=== PATIENT | female | born 1980 | race Caucasian/White ===

== ENCOUNTER 2020-05-30 14:21 | Outpatient (RCR) | payer BC, SELFPAY ==
[2013-01-22 06:50] VITALS: BMI 31.2
== END 2020-08-12 23:59 ==
LOC: IMMUN 14:21
PROVIDERS: PCP Family Medicine; Visit Provider Family Medicine
DX: Z23 Encounter for immunization (principal)
CPT/HCPCS: 0001A; 0002A; 91300

== ENCOUNTER 2022-09-23 13:53 | Outpatient (RCR) | payer BC, SELFPAY | END 2022-09-23 19:00 | disposition home or self-care (01) | LOC: PT 13:53 | PROVIDERS: PCP Family Medicine | DX: R51.9 Headache, unspecified (principal) ==

== ENCOUNTER 2023-04-08 19:49 | Emergency (ER) | payer BC, SELFPAY ==
[2023-04-08 19:50] VITALS: BP 114/72; PULSE 83; RESP 16; TEMP 36.4; O2SAT 97; BMI 27.1
--- NOTE | 2023-04-08 20:12 | CT_ITS ---
STUDY: CT ABDOMEN AND PELVIS WITH CONTRAST REASON FOR EXAM: Female, 42 years old. Pain RADIATION DOSAGE (If Supplied By Facility): CTDIvol = ( 13.92 ) mGy, DLP = ( 891.57 ) mGycm TECHNIQUE: Transaxial images were obtained from the dome of the diaphragm to the symphysis pubis without oral contrast. IV 100mL Isovue-370 was administered. Sagittal and coronal images were reconstructed. Individualized dose optimization techniques were used for this CT. COMPARISON: None. FINDINGS: The visualized lung bases are unremarkable. The visualized portions of the heart are within normal limits. Normal liver. The gallbladder is contracted. Normal spleen. Normal pancreas. Normal bilateral adrenal glands. Normal right kidney. Normal left kidney. Normal visualized stomach. Normal small intestine. Normal colon. The appendix is visualized and appears normal. Normal abdominal aorta. Normal inferior vena cava. Normal retroperitoneum. Normal urinary bladder. Normal abdominal wall. Mild levoscoliosis lumbar spine. CT/Abdomen/Pelvis W IV Cont ONLY IMPRESSION: Normal enhanced CT of the abdomen and pelvis. Electronically Signed: Brayan Bazan MD at 22:16 EST ,
[2023-04-08] MEDS: 0.9% Normal Saline (1000mL) 1,000 ML 1000 ML IV (20:24)
[2023-04-08] MEDS: Ondansetron 4 MG/2 ML Vial IV (20:30)
[2023-04-08 20:31] VITALS: BP 123/68; PULSE 69; RESP 18; O2SAT 100
[2023-04-08 20:31] LABS: Absolute Lymphocyte Count 1.61 X10^3/uL (0.83-4.51); Absolute Neutrophil Count 5.6 X10^3/uL (2.0-7.7); Basophil# 0.05 X10^3/uL; Basophil% 0.6 % (0-1); Eosinophil# 0.21 X10^3/uL; Eosinophils% 2.6 % (0-5); Hematocrit 40.1 % (37-47); Hemoglobin 13.2 g/dL (12.0-15.0); Lymphocyte # 1.61 X10^3/ul (0.83-4.51); Lymphocyte % 20.1 % (19-41); Mean Corp Hgb Conc 32.9 g/dL (32-36); Mean Corpuscular Hgb 30.4 pg (27.0-32.0); Mean Corpuscular Volume 92.4 fL (81-99); Mean Platelet Vol. 10.8 fl (6.2-12.0); Monocyte# 0.54 X10^3/uL; Monocyte% 6.8 % (0-10); NRBC Flagged by Analyzer 0 % (0-5); Neutrophil # 5.56 X10^3/uL (2.7-7.7); Neutrophil % 69.5 % (47-70); Platelet Count 195 K/mm3 (150-450); RBC Distribution Width CV 12.9 % (11.6-14.6); Red Blood Count 4.34 M/mm3 (4.2-5.4)
[2023-04-08 20:43] LABS: Internal QC Validated? YES +Cl - CLEAR BKGD; Pregnancy, Serum, hCG Quali. NEGATIVE Negative
--- OUTSIDE RECORDS SUMMARY | 2023-04-08 20:46 | XMS RPT_ITS | CCD ---
Author Name Unknown Address [address] [place] [address] Organization [facility] Care Team Providers Care Apigee Developer Name Role Phone CONNER CRAMER Unavailable Unavailable CARLOS ALBERTO FRAIRE Unavailable Unavailable Carlos Alberto Fraire MD Primary Care Provider Carlos Alberto Fraire MD Primary Care Provider Carlos Alberto Fraire MD Primary Care Provider CARLOS ALBERTO FRAIRE Primary Care Unavailable CARLOS ALBERTO FRAIRE Attending Unavailable ROSALINDA RAMIREZ Referring Unavailable CARLOS ALBERTO FRAIRE Primary Care Unavailable CARLOS ALBERTO FRAIRE Primary Care Unavailable AMILCAR GARCIA Referring Unavailable CARLOS ALBERTO FRAIRE Primary Care Unavailable AMILCAR GARCIA Attending Unavailable ROSALINDA RAMIREZ Attending Unavailable CARLOS ALBERTO FRAIRE Primary Care Unavailable CARLOS ALBERTO FRAIRE Primary Care Unavailable MARYJANE BEARDEN Referring Unavailable CARLOS ALBERTO FRAIRE Primary Care Unavailable MARYJANE BEARDEN Attending Unavailable CARLOS ALBERTO FRAIRE Primary Care Unavailable CARLOS ALBERTO FRAIRE Referring Unavailable CARLOS ALBERTO FRAIRE Primary Care Unavailable CARLOS ALBERTO FRAIRE Referring Unavailable KAREY SERRANO Attending Unavailable Allergies Allergy Classification Reported Allergen(s) Allergy Type Date of Onset Reaction(s) Facility (9 sources) Benzoyl Peroxide; Translations: [BENZOYL PEROXIDE] Drug Allergy 02-13-2011 [facility] Work Phone: Medications Current Medications Medication Drug Class(es) Dates Sig (Normalized) Sig (Original) nitrofurantoin, macrocrystals 25 mg / nitrofurantoin, monohydrate 75 mg oral capsule (1 source) Nitrofuran Antibacterial Start: 02-21-2022 End: 02-26-2022 take 1 capsule by mouth twice daily nitrofurantoin monohydrate and macrocrystal (MACROBID) 100 mg capsule Indications: Acute cystitis without hematuria Take 1 capsule by mouth twice daily for 5 days. 10 capsule 0 02/21/2022 02/26/2022 Active Completed/Discontinued Medications Medication Drug Class(es) Dates Sig (Normalized) Sig (Original) fexofenadine / Pseudoephedrine (8 sources) alpha-Adrenergic Agonist, Histamine-1 Receptor Antagonist fexofenadine/pseudo ephedrine (NEGIN-D 24 HOUR ORAL) Take by mouth. 0 Active Problems Active Problems Problem Classification Problem Date Documented Date Episodic/Chronic Anxiety disorders (2 sources) Generalized anxiety disorder; Translations: [Generalized anxiety disorder] Onset: 04-07-2023 09-16-2022 Chronic Headache; including migraine (8 sources) Migraine; Translations: [Migraine, unspecified, not intractable, without status migrainosus] Onset: 04-09-2010 03-02-2021 Chronic Heart valve disorders (9 sources) Mitral valve prolapse; Translations: [Nonrheumatic mitral (valve) prolapse] Onset: 04-09-2010 03-02-2021 Chronic Hemorrhoids (1 source) Other hemorrhoids; Translations: [Internal hemorrhoids] Onset: 03-29-2023 Episodic Nonmalignant breast conditions (1 source) Breast finding ; Translations: [Dense breast tissue] 01-17-2023 Episodic Nutritional deficiencies (1 source) Vitamin D deficiency, unspecified; Translations: [Vitamin D deficiency] Onset: 04-07-2023 Chronic Other nervous system disorders (1 source) Unable to concentrate ; Translations: [Attention and concentration deficit] 09-16-2022 Chronic Other nervous system disorders (1 source) Attention and concentration deficit; Translations: [Lack of concentration] Onset: 09-16-2022 Chronic Other nervous system disorders (1 source) Impaired cognition; Translations: [Other symptoms and signs involving cognitive functions and awareness] 09-16-2022 Episodic Other nutritional; endocrine; and metabolic disorders (8 sources) Zcein-5-fnruhtnnzwe deficiency; Translations: [Jujtk-2-lxmzthgmgrf deficiency] Onset: 11-30-2011 03-02-2021 Chronic Other screening for suspected conditions (not mental disorders or infectious disease) (7 sources) Patient encounter status; Translations: [Encounter for screening mammogram for malignant neoplasm of breast] Onset: 01-17-2023 Episodic Other upper respiratory disease (8 sources) Seasonal allergy; Translations: [Other seasonal allergic rhinitis] Onset: 06-16-2010 06-16-2010 Chronic Unclassified (1 source) Palpitations / R00.2(ICD-10) Onset: 03-04-2018 Unclassified (1 source) Hypokalemia / E87.6(ICD-10) Onset: 03-04-2018 Unclassified (1 source) Other specified abnormal findings of blood chemistry / R79.89(ICD-10) Onset: 03-04-2018 Unclassified (1 source) Dense breast tissue; Translations: [Dense breast tissue] Onset: 01-17-2023 Urinary tract infections (1 source) Acute cystitis; Translations: [Acute cystitis without hematuria] Episodic Past or Other Problems Problem Classification Problem Date Documented Da te Episodic/Chronic Other nervous system disorders (1 source) Other symptoms and signs involving cognitive functions and awareness; Translations: [Brain fog] Onset: 09-16-2022 Episodic Results Test Name Value Interpretation Reference Range Facil ity Vital Signs Date Time Vital Sign Value Performing Clinician Faci lity 09-16-2022 12:58-0400 Diastolic blood pressure 70 mm[Hg] Amilcar Garcia [employer].OTOLARYNGOLOGY PHYSICIAN Work Phone: [facility] 09-16-2022 12:58-0400 Heart rate 83 /min Amilcar Garcia [employer].OTOLARYNGOLOGY PHYSICIAN Work Phone: [facility] 09-16-2022 12:58-0400 Respiratory rate 18 /min Amilcar Garcia [employer].OTOLARYNGOLOGY PHYSICIAN Work Phone: [facility] 09-16-2022 12:58-0400 SaO2% (BldA) [Mass fraction] 97 % Amilcar Garcia [employer].OTOLARYNGOLOGY PHYSICIAN Work Phone: [facility] 09-16-2022 12:58-0400 Systolic blood pressure 128 mm[Hg] mAilcar Garcia [employer].OTOLARYNGOLOGY PHYSICIAN Work Phone: [facility] 08-05-2022 14:40-0400 Body height 190.5 cm Rosalinda Ramirez [employer].CNM Work Phone: [facility] 08-05-2022 14:40-0400 Body weight 97.98 kg Rosalinda Plotts [employer]CNM Work Phone: [facility] 08-05-2022 14:40-0400 Diastolic blood pressure 70 mm[Hg] Rosalinda Plotts [employer].CNM Work Phone: [facility] 08-05-2022 14:40-0400 Systolic blood pressure 114 mm[Hg] Rosalinda Plotts [employer]CNM Work Phone: [facility] 08-04-2021 10:43-0400 Body height 190.5 cm Rosalinda Plotts [employer]CNM Work Phone: [facility] 08-04-2021 10:43-0400 Body weight 101.61 kg Rosalidna Plotts [employer]CNM Work Phone: [facility] 08-04-2021 10:43-0400 Diastolic blood pressure 78 mm[Hg] Rosalinda Plotts [employer].CNM Work Phone: [facility] 08-04-2021 10:43-0400 Systolic blood pressure 120 mm[Hg] Rosalinda Plotts [employer].CNM Work Phone: [facility] Encounters Encounter Date Encounter Type Care Provider Facility Start: 04-07-2023 ambulatory CARLOS ALBERTO Blum [facility] Facil ity:[facility] Start: 04-06-2023 ambulatory CARLOS ALBERTO Blum [facility] Facil ity:[facility] Start: 04-01-2023 End: 04-01-2023 ambulatory CARLOS ALBERTO Kulwant [facility] Facility:[facility] Start: 03-29-2023 End: 03-29-2023 ambulatory CARLOS ALBERTO Blum [facility] Facility:[facility] Start: 03-29-2023 End: 03-29-2023 ambulatory [facility] Facility:[facility] Start: 01-17-2023 Documentation procedure Mammog asmita Coordinator [facility] Start: 01-17-2023 Letter encounter Mammography Coordinator [facility] Department Start: 01-17-2023 End: 01-17-2023 ambulatory ROSALINDA RAMIREZ Facility:[facility] Start: 01-17-2023 End: 01-17-2023 Subsequent hospital visit by physician Screen Mammo [facility] Mammogram Procedures Date Procedure Procedure Detail Performing Clinician Start: 01-17-2023 Screening digital br east tomosynthesis bi Rosalinda Ramirez [employer]CNM Work Phone: Start: 01-11-2022 Mammography Mammograph y Coordinator Start: 01-08-2021 Mammography Rosalinda pérezchris [employer]CNM Work Phone: Start: 06-17-2020 Adult depression scr eening assessment Rosalinda Ramirez [employer]CNM Work Phone: Start: 03-04-2018 CHECK TEMPERATURE CONNER ABDULMUNEM Start: 03-04-2018 Potassium serum plasma/whole blood CONNER ABDULMUNEM Start: 03-04-2018 RAPID INFLUENZA A/B ANTIGENS CONNER ABDULMUNEM Start: 03-04-2018 Radiologic exam ches t 2 views CONNER ABDULMUNEM Start: 03-04-2018 Dup-scan xtr veins unilateral/limited study CONNER ABDULMUNEM Start: 03-04-2018 Radex ankle complete minimum 3 views CONNER ABDULMUNEM Start: 03-04-2018 D-DIMER, QUANTITATIVE Y ASIR ABDULMUNEM Start: 03-04-2018 URINE DRUG SCREEN CONNER ABDULMUNEM Start: 03-04-2018 Urnls dip stick/tabl et rgnt auto w/o microscopy CONNER ABDULMUNEM Start: 03-04-2018 Antibody bordetella RAN IR ABDULMUNEM Start: 03-04-2018 Assay of free thyroxine CONNER ABDULMUNEM Start: 03-04-2018 Assay of magnesium FAITH R ABDULMUNEM Start: 03-04-2018 Basic metabolic pane l calcium total CONNER ABDULMUNEM Start: 03-04-2018 Blood count complete auto&auto difrntl wbc CONNER ABDULMUNEM Start: 03-04-2018 Creatinine blood CONNER ABDULMUNEM Start: 03-04-2018 Gonadotropin chorion ic qualitative CONNER ABDULMUNEM Start: 03-04-2018 OSMOLALITY CONNER ABDU LMUNEM Start: 03-04-2018 TROPONIN CONNER ABDU LMUNEM Start: 03-04-2018 TSH WITH REFLEX CONNER Vee BDULMUNEM Start: 03-04-2018 EKG 12-LEAD CONNER FUENTES Plan of Treatment Date Care Activity Detail Author Start: 12-20-2029 Urine microalbumin profile [facility] Start: 08-06-2027 HPV TESTING HPV TESTING [facility] Start: 08-06-2027 PAP TESTING PAP TESTING [facility] Start: 08-04-2026 HPV TESTING HPV TESTING [facility] Start: 08-04-2026 PAP TESTING PAP TESTING [facility] Start: 07-21-2025 HPV TESTING HPV TESTING [facility] Start: 07-21-2025 PAP TESTING PAP TESTING [facility] Start: 01-18-2024 Mammography Mammogram Screening [facility] Start: 01-11-2023 Mammography [facility] Start: 11-05-2022 Covid-19 Vaccine ( season) Covid-19 Vaccine () [facility] Start: 11-05-2022 Influenza vaccination [facility] Start: 09-16-2022 End: 11-16-2022 25-hydroxyvitamin D3 [Mass/volume] in Serum or Plasma [facility] Work Phone: Immunizations Immunization Date Immunization Notes Care Provider Fa murphy 01-03-2022 influenza virus vaccine, unspecified formulation Screen Wstr [facility] 12-05-2020 influenza, injectabl e, quadrivalent, contains preservative Rosalinda Ramirez [employer]CNM Work Phone: [facility] Work Phone: 06-20-2020 COVID-19 vaccine, ag e 12+ yr (PFIZER-BIONTECH - PURPLE TOP) Rosalinda Plotts [employer].CNM Work Phone: [facility] 05-30-2020 COVID-19 vaccine, ag e 12+ yr (PFIZER-BIONTECH - PURPLE TOP) Rosalinda Ramirez [employer].CNM Work Phone: [facility] Work Phone: 12-21-2019 tetanus toxoid, redu glo diphtheria toxoid, and acellular pertussis vaccine, adsorbed Rosalindashima Ramirez [employer]CNM Work Phone: [facility] 12-10-2019 influenza, injectabl e, quadrivalent, contains preservative Rosalinda Plotts [employer].CNM Work Phone: [facility] 12-20-2018 influenza, injectabl e, quadrivalent, contains preservative Rosalinda Plotts [employer]CL[employer]URE [employer].CNM Work Phone: [facility] 12-17-2017 influenza, injectabl e, quadrivalent, contains preservative Rosalinda Plotts [employer]ECL[employer]URE [employer].CNM Work Phone: [facility] 12-11-2016 influenza, injectabl e, quadrivalent, contains preservative Rosalinda Plotts [employer]CL[employer]CNM Work Phone: [facility] 01-09-2015 influenza, injectabl e, quadrivalent, contains preservative Rosalinda Plotts [employer]ECLOSURE [employer].CNM Work Phone: [facility] Work Phone: 12-12-2013 influenza, seasonal, injectable Rosalinda Plotts [employer]CNM Work Phone: [facility] 12-07-2012 influenza virus vaccine, unspecified formulation Rosalinda Plotts [employer]CNM Work Phone: [facility] 12-07-2012 tetanus toxoid, redu glo diphtheria toxoid, and acellular pertussis vaccine, adsorbed Rosalinda Plotts [employer]ECL[employer]CNM Work Phone: [facility] 12-20-2011 influenza virus vaccine, unspecified formulation Rosalinda Plotts [employer]ECL[employer]URE [employer].CNM Work Phone: [facility] Work Phone: 11-03-2007 tetanus toxoid, redu glo diphtheria toxoid, and acellular pertussis vaccine, adsorbed Rosalinda Plotts [employer]CL[employer].CNM Work Phone: [facility] Payers Date Payer Category Payer Unknown KOREYSHIRLEY IGNACIO PPO [id number] 2016-Present [phone] [facility] [id number] [place] [address] PPO [id number] 2016 Unknown YRN IGNACIO PPO [id number] 2016-Present [phone] [address] [place] [address] PPO [id number] 2014 Unknown [id number] 1980 Unknown [id number] Social History Date Type Detail Facility Start: 08-05-2022 Tobacco smoking status NHIS Never sm oked tobacco [facility] Start: 08-04-2021 Alcohol intake Ex-drinker (finding) [facility] Start: 08-04-2021 End: 08-05-2022 Alcohol intake [facility] Start: 06-18-2020 History SDOH Alcohol Frequency 3 [facility] Start: 06-18-2020 History SDOH Alcohol Std Drinks 1 [facility] Start: 06-05-2012 History SDOH Alcohol Comment occasional, NOT WHILE [facility] Start: 06-18-2020 History SDOH Social Connections Phone 5 [facility] Start: 06-18-2020 History SDOH Social Connections Get Together 4 [facility] Start: 06-18-2020 History SDOH Physica l Activity DPW 7 [facility] Start: 06-18-2020 History SDOH Physica l Activity MPS 9 [facility] Start: 06-18-2020 History SDOH Transport Med 2 [facility] Start: 07-20-2019 Education 18 [facility] Start: 1980 Sex Assigned At Not on file [facility] Start: 07-25-2021 End: 08-04-2021 Exposure to SARS-CoV-2 (event) Not sure [facility] Start: 08-05-2022 Tobacco use and exposure Smoke less tobacco non-user [facility] Start: 08-05-2022 End: 09-16-2022 Alcohol intake Current drinker of alcohol (finding) [facility] Start: 08-05-2022 End: 09-16-2022 Social connection and isolation panel [facility] Do you belong to any clubs or organizations such as judaism groups, unions, fraternal or athletic groups, or school groups? Yes [facility] Are you now , , , , never or living with a partner? [facility] How often to you hav e a drink containing alcohol? 2-3 time sa week [facility] How many standard dr inks containing alcohol do you have on a typical day? 1 or 2 [facility] How often do you hav e 6 or more drinks on 1 occasion? Never [facility] How hard is it for y ou to pay for the very basics like food, housing, medical care, and heating Not hard at all [facility] Do you feel stress - tense, restless, nervous, or anxious, or unable to sleep at night because your mind is troubled all the time - these days [OSQ] Rather much [facility] (I/We) worried wheascencion er (my/our) food would run out before (I/we) got money to buy more. Never true [facility] In the past 12 month s, was there a time when you were not able to pay the mortgage or rent on time? No [facility] Clinical Notes 07-14-2012 to 04-06-2023 Letter - Coordinator, Mammography - 01/17/2023 10:09 AM Isael Castro Mammo Tech - 01/17/2023 7:30 AM ESTTelephone Encounter - Anita Herring Ma - 09/20/2022 9:40 AM EDTPatient Instructions Note Date & Type Note Facility 04-06-2023 Note HNO ID: [id number] Author: MARYJANE BEARDEN APRN.OTOLARYNGOLOGY PHYSICIAN Service: ? Author Type: Nurse Practitioner Type: Progress Notes Filed: 04/06/2023 22:26 Note Text: This is a 42 year old female who presents today with: Patient presents with: Anxiety: intermittent HISTORY OF PRESENT ILLNESS: Yennifer Headley is a 42 year old female. Patient presents with: Anxiety: intermittent Over the last couple of years, worsening anxiety. Always with a high functioning anxiety, but able to cope. This is more of a constant feeling of doom. Started a couple of years ago and would start in the middle of her cycle and last briefly. Some months now, will start mid cycle and then will last until her periods start. Has had some additional situational stressors. Ill friend. Mother's hx. She is awaiting cardiology appt. She has never been treated for depression/anxiety. Her mother has hx of liver issues. She is concerned of being on a medication that may damage her liver. Sleep had been good until recently. Refers moreso recently, would wake up and then focus on her heart rate, which then would only increase her heart rate. Has lost weight. Does have a concern over potential weight gain with medication. She has a daughter with anxiety and did participate in counseling with her and has tried utilizing some of those techniques. Questions of she may have a component of ADD/ADHD. No SI/HI. 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 Cervical high risk human papillomavirus (HPV) DNA test positive 2004 [place] Migraine, unspecified, with intractable migraine, so stated, without mention of status migrainosus Migraine Mitral valve disorders(424.0) Mitral valve disorder, MVP Other abnormal blood chemistry Abnormality in Genetic testing, Alpha 1 Antitrypsin Deficiency Seasonal allergies PAST SURGICAL HISTORY Procedure Laterality Date COLPOSCOPY CERVIX UPPER/ADJACENT VAGINA 2004 Colposcopy no abn PAST SURGICAL HISTORY OF 2 foot surgeries- bunions and hammar toes PAST SURGICAL HISTORY OF WISDOM TEETH ALLERGIES Benzoyl Peroxide MEDICATIONS Current Outpatient Medications Medication Sig pantoprazole DR (PROTONIX) 40 mg tablet Take 1 tablet by mouth daily before breakfast. Take on empty stomach, 1/2 hr before meal. magnesium oxide 200 mg magnesium chew Take 1 tablet by mouth once daily. hydrocortisone (ANUSOL-HC) 25 mg suppository 1 Suppository by RECTAL route two times a day as needed (hemorrhoids/rectal pain). fluticasone propionate (FLONASE NASAL) Use in the nose. MULTIVITAMIN ORAL Take by mouth. fexofenadine/pseudoephedrine (NEGIN-D 24 HOUR ORAL) Take by mouth. L. acidophilus-L. rhamnosus 15 billion cell cap Take 1 capsule by mouth once daily. FLORAJEN WOMEN. If on antibiotic, take at least 1-2 hours before or after antibiotic. KEEP REFRIGERATED No current facility-administered medications for this visit. FAMILY HISTORY Problem Relation Age of Onset Hypertension Mother other (chrons disease) Mother , d/t complications from liver failure at age 61 other (Fibroid) Mother Surgical removed No Known Problems Father other (testicular cancer) Brother Breast Cancer Maternal Grandmother Heart Attack Maternal Grandfather fatal ID at age 50s Cancer Paternal Grandmother ovarian Cervical Cancer Paternal Aunt Social History Tobacco Use Smoking status: Never Smokeless tobacco: Never Vaping Use Vaping Use: Never used Substance Use Topics Alcohol use: Yes Alcohol/week: 2.0 standard drinks of alcohol Types: 2 Glasses of Wine (5oz) per week Drug use: No EXAM: BP 104/72 Pulse 95 Resp 16 LMP 07/15/2022 (Exact Date) SpO2 97% PHYSICAL EXAM: General Appearance: Well appearing, alert, in no acute distress, well-hydrated, well nourished. Teary at times. Skin: Skin color, texture, turgor normal, no suspicious rashes or lesions. Head: Normocephalic, no masses, lesions, tenderness or abnormalities. Eyes: Anicteric sclera. Extraocular movements are intact. . Lungs: Lungs clear to auscultation. No wheezing, rhonchi, rales.. Heart: RRR without murmur, gallop, or rubs. No ectopy. Extremities: No deformities, edema, skin discoloration, clubbing or cyanosis. Good capillary refill. . Neurologic: Gait normal. ASSESSMENT/PLAN: 1. POLLO (generalized anxiety disorder) - ICD9: 300.02, ICD10: F41.1 (primary diagnosis) Has some POLLO compounded by some situational anxiety. May have a cyclic component. Discussed options. Agreeable to starting medication therapy. Will start sertraline. Will check labs. - SERTRALINE 50 MG TABLET 1/2 pill daily X 1 week; then increase to a whole pill daily. - CBC + DIFF - COMP METABOLIC PANEL - TSH BLD - T4 FREE/FREE THYROX Will plan to recheck in a month. Sooner if needed. Aware to call/mychart with problems/concerns. 2. Screen (more content not included)... [facility] 03-31-2023 Note HNO ID: [id number] Author: KAREY SERRANO MD Service: ? Author Type: Physician Type: Progress Notes Filed: 03/31/2023 19:08 Note Text: HISTORY AND PHYSICAL Yennifer Headley 1980 REFERRING PHYSICIAN: Carlos Alberto Fraire MD CHIEF COMPLAINT: Consult (Internal hemorrhoids, colonoscopy consult, no prior colonoscopy) HPI: The patient is a 42 year old female referred for endoscopy. Yennifer notes a feeling of pressure in her lower rectum and feeling of a constant need to have to have a bowel movement for the past month. She notes that the symptoms of this feeling pressure to have a bowel movement has increased for the past month. It gets worse as the day goes on. She denies constipation diarrhea or rectal bleeding. She wonders if this issue relates to hemorrhoids. She states she has had prolapsing hemorrhoids in the past but they have resolved spontaneously. She has been trying Preparation H and Epsom salts. She has no personal history of colon cancer but she notes her father had a colon resection for a precancerous lesion. The patient initially denied any GI complaints but then noted dysphagia with solid food sticking approximately 3 times a week. Yennifer has not undergone prior endoscopy. The patient is being seen by me today at the request of Dr. Carlos Alberto Fraire MD for my opinion and advice regarding rectal pressure possibly hemorrhoids, need for screening colonoscopy by age with a suspected family history, and dysphagia. 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 Cervical high risk human papillomavirus (HPV) DNA test positive 2004 [place] Migraine, unspecified, with intractable migraine, so stated, without mention of status migrainosus Migraine Mitral valve disorders(424.0) Mitral valve disorder, MVP Other abnormal blood chemistry Abnormality in Genetic testing, Alpha 1 Antitrypsin Deficiency Seasonal allergies PAST SURGICAL HISTORY Procedure Laterality Date COLPOSCOPY CERVIX UPPER/ADJACENT VAGINA 2004 Colposcopy no abn PAST SURGICAL HISTORY OF 2 foot surgeries- bunions and hammar toes PAST SURGICAL HISTORY OF WISDOM TEETH Current Outpatient Medications Medication Sig magnesium oxide 200 mg magnesium chew Take 1 tablet by mouth once daily. hydrocortisone (ANUSOL-HC) 25 mg suppository 1 Suppository by RECTAL route two times a day as needed (hemorrhoids/rectal pain). fluticasone propionate (FLONASE NASAL) Use in the nose. MULTIVITAMIN ORAL Take by mouth. fexofenadine/pseudoephedrine (NEGIN-D 24 HOUR ORAL) Take by mouth. L. acidophilus-L. rhamnosus 15 billion cell cap Take 1 capsule by mouth once daily. [facility] WOMEN. If on antibiotic, take at least 1-2 hours before or after antibiotic. KEEP REFRIGERATED No current facility-administered medications for this visit. ALLERGIES: Benzoyl Peroxide PERSONAL HISTORY: Social History Tobacco Use Smoking status: Never Smokeless tobacco: Never Vaping Use Vaping Use: Never used Substance Use Topics Alcohol use: Yes Alcohol/week: 2.0 standard drinks of alcohol Types: 2 Glasses of Wine (5oz) per week Drug use: No FAMILY HISTORY: FAMILY HISTORY Problem Relation Age of Onset Hypertension Mother other (chrons disease) Mother , d/t complications from liver failure at age 61 other (Fibroid) Mother Surgical removed No Known Problems Father other (testicular cancer) Brother Breast Cancer Maternal Grandmother Heart Attack Maternal Grandfather fatal ID at age 50s Cancer Paternal Grandmother ovarian Cervical Cancer Paternal Aunt REVIEW OF SYMPTOMS: The review of systems data was entered by the nurse and reviewed by ma Nursing Notes: Myriam Ramos LPN 03/29/2023 2:22 PM Signed REVIEW OF SYSTEMS: General: The patient denies fatigue, denies weight loss, denies weight gain, denies feeling hot, and denies feelings of cold. Eyes: The patient denies glaucoma, denies eye injury/surgery, wears glasses or contacts. Ear/Nose/Throat: The patient notes allergies, denies hayfever, denies ear infections, and denies bloody noses. Cardiovascular: The patient denies chest pain, denies heart disease, denies high blood pressure,denies cardiac stent, denies prior heart attack, denies irregular heart beat, denies high cholesterol, notes poor circulation, denies heart failure, other cardiac issues, denies claudication, denies cold feet, denies peripheral arterial stent. Respiratory: The patient denies tuberculosis, denies pneumonia, denies frequent cough, denies pulmonary embolism, denies shortness of breath, and denies coughing up blood. Gastrointestinal: The patient denies difficulty swallowing, denies acid reflux, denies ulcers, denies vomiting, denies jaundice/hepatitis, denies gallbladder problems, denies black or tarry stools, notes hemorrhoids, denies bleeding from rectum, denies diverticulitis, denies con (more content not included)... [facility] 03-29-2023 Note HNO ID: [id number] Author: CARLOS ALBERTO FRAIRE MD Service: ? Author Type: Physician Type: Progress Notes Filed: 03/29/2023 10:50 Note Text: Chief Complaint Patient presents with: Rectal Problem: hemorrhoids HPI Yennifer Headley is a 42 year old female who presents here today for hemorrhoids. Has 2 kids ages 14 and 10. Pt has new hemorrhoids. She first noticed it when she was on her feet one day a lot but didn't think it was much as she tends to get tight in the lower back and hips when on her feet a lot. She has had hemorrhoid issues since . She feels it is more internal, pressure, throbbing at times. Feels like she needs to have BM due to the pressure. She states that the more she is on her feet it will feel a little external to the left side. She has not had any rectal bleeding, no burning or itching. She has done epsom salt baths and used preparation H which seems to help externally but not much internally. Denies having any constipation or diarrhea. Stools are softer but she has started getting more protein and fiber in her diet. She is typically regular, goes about once daily. She does feel that she has to push hard to pass gas at times. Her father had issues with hemorrhoids at her age that we bad enough he had to have laser tx, had to have some intestinal issues and precancerous polyps in his colon. Pt to get an Echo done regularly to monitor her mitral valve prolapse. She does get palpitations at times but feels like it is hormonal. Some flutters and skipped beat occ. No light headedness or dizziness. Typically only happens a few times a year. Last Echo was in 2018. Last visit with Cardio was in September 2018. Past medical history, appointments, medications, allergies reviewed. 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 Cervical high risk human papillomavirus (HPV) DNA test positive 2004 [place] Migraine, unspecified, with intractable migraine, so stated, without mention of status migrainosus Migraine Mitral valve disorders(424.0) Mitral valve disorder, MVP Other abnormal blood chemistry Abnormality in Genetic testing, Alpha 1 Antitrypsin Deficiency Seasonal allergies Previous Surgical History PAST SURGICAL HISTORY Procedure Laterality Date COLPOSCOPY CERVIX UPPER/ADJACENT VAGINA 2004 Colposcopy no abn PAST SURGICAL HISTORY OF 2 foot surgeries- bunions and hammar toes PAST SURGICAL HISTORY OF WISDOM TEETH Family History FAMILY HISTORY Problem Relation Age of Onset Hypertension Mother other (chrons disease) Mother , d/t complications from liver failure at age 61 other (Fibroid) Mother Surgical removed No Known Problems Father other (testicular cancer) Brother Breast Cancer Maternal Grandmother Heart Attack Maternal Grandfather fatal ID at age 50s Cancer Paternal Grandmother ovarian Cervical Cancer Paternal Aunt Patient Allergies ALLERGIES Allergen Reactions Benzoyl Peroxide Hives Current Medications Current Outpatient Medications on File Prior to Visit Medication Sig PARoxetine (PAXIL) 10 mg tablet Take 1 tablet by mouth once daily. fluticasone propionate (FLONASE NASAL) Use in the nose. MULTIVITAMIN ORAL Take by mouth. fexofenadine/pseudoephedrine (NEGIN-D 24 HOUR ORAL) Take by mouth. L. acidophilus-L. rhamnosus 15 billion cell cap Take 1 capsule by mouth once daily. [facility] WOMEN. If on antibiotic, take at least 1-2 hours before or after antibiotic. KEEP REFRIGERATED No current facility-administered medications on file prior to visit. Social History Social History Tobacco Use Smoking status: Never Smokeless tobacco: Never Vaping Use Vaping Use: Never used Substance Use Topics Alcohol use: Yes Alcohol/week: 2.0 standard drinks of alcohol Types: 2 Glasses of Wine (5oz) per week Drug use: No EXAM: BP 118/68 Pulse 78 Resp 16 Wt 100.8 kg (222 lb 3.2 oz) LMP 07/15/2022 (Exact Date) BMI 27.77 kg/m? General Appearance: Well appearing, alert, in no acute distress, well-hydrated, well nourished.. Lungs: Lungs clear to auscultation. No wheezing, rhonchi, rales.. Heart: RRR without murmur, gallop, or rubs. No ectopy. Health Maintenance List Hepatitis B Vaccine(1 of 3 - 3-dose series) Never done Hepatitis C Screening Never done Covid-19 Vaccine( season) due on 11/05/2022 Depression Assessment Never done Mammogram Screening due on 01/18/2024 Pap Testing due on 08/06/2027 HPV Testing due on 08/06/2027 DTaP,Tdap,Td Vaccine(4 - Td or Tdap) due on 12/20/2029 Influenza Vaccine Completed HIV Screening Completed HPV Vaccine Aged Out Data reviewed None ASSESSMENT/PLAN: 1. Internal hemorrhoids - ICD9: 455.0, ICD10: K64.8 (primary diagnosis) Start rectal suppositories Consult Gen Surgery; also due to start screening colonoscopy this year. 2. MVP (mitral valve prolaps (more content not included)... [facility] 01-17-2023 Miscellaneous Notes January 18, 2023 PID: [id number] Yennifer Headley [address] [place] [address] Dear Ms. Headley, We are pleased to inform you that the results of your recent breast imaging exam on 01/17/2023 are normal. Your mammogram demonstrates that you have dense breast tissue, which could hide abnormalities. Dense breast tissue, in and of itself, is a relatively common condition. Therefore, this information is not provided to cause undue concern; rather, it is to raise your awareness and promote discussion with your health care provider regarding the presence of dense breast tissue in addition to other risk factors. Early detection of cancer is very important. We also understand recommendations regarding breast cancer screening are controversial. Please discuss with your primary care provider which strategy is best for you and whether a mammogram is right for you. Your imaging studies and report will be kept on file at [facility] as part of your permanent medical record and are available for your continuing care. Thank you for allowing us to help in meeting your health care needs. Sincerely, Dr. Hoffmann Interpreting Radiologist [facility] (Normal over 40) documented in this encounter [facility] 01-17-2023 Note HNO ID: [id number] Author: Isael Pate Mammo Tech Service: ? Author Type: Technologist Type: Progress Notes Filed: 01/17/2023 7:55 AM Note Text: Radiology Service Progress Note PATIENT NAME: Yennifer Headley DATE OF SERVICE: January 17, 2023 TIME: 7:55 AM PATIENT IDENTITY VERIFICATION COMPLETED USING TWO (2) IDENTIFIERS: Name and Date of confirmed by patient verbally. FALL SCREENING: Has the patient had 2 falls in the last year or 1 fall with injury or currently using an Ambulatory Assistive Device (Walker, Cane, Wheelchair, Crutches, etc.)? No PATIENT GENDER DATA: Female. status: : No status: NO. PATIENT RELEVANT IMPLANT DATA REVIEWED: Not Applicable RADIOLOGY DEPARTMENT: Mammography PERIPHERAL IV DATA: Not applicable SIGNED BY: Bibiana CouchYUPPTV January 17, 2023 7:55 AM [facility] 01-17-2023 History of Presen t illness Narrative Radiology Service Progress Note PATIENT NAME: Yennifer Headley DATE OF SERVICE: January 17, 2023 TIME: 7:55 AM PATIENT IDENTITY VERIFICATION COMPLETED USING TWO (2) IDENTIFIERS: Name and Date of confirmed by patient verbally. FALL SCREENING: Has the patient had 2 falls in the last year or 1 fall with injury or currently using an Ambulatory Assistive Device (Walker, Cane, Wheelchair, Crutches, etc.)? No PATIENT GENDER DATA: Female. status: : No status: NO. PATIENT RELEVANT IMPLANT DATA REVIEWED: Not Applicable RADIOLOGY DEPARTMENT: Mammography PERIPHERAL IV DATA: Not applicable SIGNED BY: Ruth Ann Couch January 17, 2023 7:55 AM documented in this encounter [facility] 09-20-2022 Miscellaneous Notes Pt notified of results via [employer]. Anita Herring Ma Can you please call the patient and let her know that I reviewed her lab results. Labs were all relatively normal. I do not see any causes at this time for her current symptoms. I did get her [employer] message. If she would like to wait to start the Paxil and try natural things first that is okay. In regards to ovarian cancer screening this would include a transvaginal ultrasound and a blood test called CA-125. As well as staying up-to-date on pelvic exams at [facility]. Please let me know if she has any questions. Thank you. Amilcar Garcia APRN.OTOLARYNGOLOGY PHYSICIAN documented in this encounter [facility] 09-16-2022 Note HNO ID: [id number] Author: Amilcar Garcia APRN.TK Service: ? Author Type: Nurse Practitioner Type: Progress Notes Filed: 09/16/2022 2:04 PM Note Text: This is a 41 year old female who presents today with: Patient presents with: Anxiety HISTORY OF PRESENT ILLNESS: Yennifer Headley is a 41 year old female. Patient presents with: Anxiety Here in the office to discuss increased anxiety, brain fog, and palpitations. Was evaluated in gynecology due to irregular cycles. Recommending follow-up with PCP team for further evaluation. Has never been diagnosed with depression or anxiety in the past, has never taken any prescription medication. Increase in anxiety and difficulty with sleep. Difficulty staying asleep, light sleeper, will wake up quickly. Will be on the verge of panic attack with brain fog. No hot flashes, history of MVP. Will get random palpitations. 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 Cervical high risk human papillomavirus (HPV) DNA test positive 2004 [place] Migraine, unspecified, with intractable migraine, so stated, without mention of status migrainosus Migraine Mitral valve disorders(424.0) Mitral valve disorder, MVP Other abnormal blood chemistry Abnormality in Genetic testing, Alpha 1 Antitrypsin Deficiency Seasonal allergies PAST SURGICAL HISTORY Procedure Laterality Date COLPOSCOPY CERVIX UPPER/ADJACENT VAGINA 2004 Colposcopy no abn PAST SURGICAL HISTORY OF 2 foot surgeries- bunions and hammar toes PAST SURGICAL HISTORY OF WISDOM TEETH ALLERGIES Benzoyl Peroxide MEDICATIONS Current Outpatient Medications Medication Sig fluticasone propionate (FLONASE NASAL) Use in the nose. MULTIVITAMIN ORAL Take by mouth. fexofenadine/pseudoephedrine (NEGIN-D 24 HOUR ORAL) Take by mouth. L. acidophilus-L. rhamnosus 15 billion cell cap Take 1 capsule by mouth once daily. [facility] WOMEN. If on antibiotic, take at least 1-2 hours before or after antibiotic. KEEP REFRIGERATED No current facility-administered medications for this visit. FAMILY HISTORY Problem Relation Age of Onset Hypertension Mother other (chrons disease) Mother , d/t complications from liver failure at age 61 other (Fibroid) Mother Surgical removed No Known Problems Father other (testicular cancer) Brother Breast Cancer Maternal Grandmother Heart Attack Maternal Grandfather fatal ID at age 50s Cancer Paternal Grandmother ovarian Cervical Cancer Paternal Aunt Social History Tobacco Use Smoking status: Never Smokeless tobacco: Never Vaping Use Vaping Use: Never used Substance Use Topics Alcohol use: Yes Alcohol/week: 5.0 standard drinks of alcohol Types: 2 Glasses of Wine (5oz) per week Drug use: No REVIEW OF SYSTEMS GENERAL: No weight loss, malaise or fevers/chills HEENT: Negative for frequent or significant headaches, No changes in hearing or vision. NECK: Negative for lumps, goiter, pain and significant neck swelling RESPIRATORY: Negative for cough, hemoptysis, wheezing, dyspnea or shortness of breath CARDIOVASCULAR: Negative for chest pain, leg swelling, orthopnea, or palpitations GI: No nausea, vomiting, or diarrhea/constipation. No hematochezia/melena. No heartburn or reflux symptoms. : No history of dysuria, frequency or incontinence MUSCULOSKELETAL: Negative for joint pain or swelling. SKIN: Negative for lesions, rash, and itching ENDOCRINE: Negative for cold or heat intolerance, polyuria, polydipsia and goiter NEURO: No history of headaches, syncope, paralysis, seizures or tremors MOOD: + Anxiety/Difficulty sleeping EXAM: BP 128/70 Pulse 83 Resp 18 LMP 07/15/2022 (Exact Date) SpO2 97% PHYSICAL EXAM: General Appearance: Well appearing, alert, in no acute distress, well-hydrated, well nourished. Skin: Skin color, texture, turgor normal, no suspicious rashes or lesions. Head: Normocephalic, no masses, lesions, tenderness or abnormalities. Eyes: Anicteric sclera. Extraocular movements are intact. Lungs: Lungs clear to auscultation. No wheezing, rhonchi, rales. Heart: RRR without murmur, gallop, or rubs. No ectopy. Extremities: No deformities, edema, skin discoloration, clubbing or cyanosis. Good capillary refill. Peripheral Pulses: Normal, Capillary refill <2secs, strong peripheral pulses, Pulses palpable. Neurologic: Gait normal. Reflexes normal and symmetric. Sensation grossly intact. Mood: Pleasant, good eye contact, engaged. ASSESSMENT/PLAN: 1. POLLO (generalized anxiety disorder) - ICD9: 300.02, ICD10: F41.1 (primary diagnosis) - Start Paxil 10 mg daily. - Medication education and instructions discussed. - Discussed adding on hydroxyzine in the future if needed for increased anxiety or difficulty sleeping. - PAROXETINE 10 MG TABLET 2. Brain fog - ICD9: 799.59, ICD10: R41.89 - Get labs completed. (more content not included)... [facility] 09-16-2022 Instructions Amilcar Garcia APRN.CNP - 09/16/2022 1:20 PM EDT Get labs completed Start Paxil 10 mg daily. May use OTC magnesium before bed to help with sleep. If no improvement may consider hydroxyzine in the future. Follow up in 1 month or sooner as needed. documented in this encounter [facility] 09-16-2022 History of Presen t illness Narrative This is a 41 year old female who presents today with: Patient presents with: Anxiety HISTORY OF PRESENT ILLNESS: Yennifer Headley is a 41 year old female. Patient presents with: Anxiety Here in the office to discuss increased anxiety, brain fog, and palpitations. Was evaluated in gynecology due to irregular cycles. Recommending follow-up with PCP team for further evaluation. Has never been diagnosed with depression or anxiety in the past, has never taken any prescription medication. Increase in anxiety and difficulty with sleep. Difficulty staying asleep, light sleeper, will wake up quickly. Will be on the verge of panic attack with brain fog. No hot flashes, history of MVP. Will get random palpitations. 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 Cervical high risk human papillomavirus (HPV) DNA test positive 2004 [place] Migraine, unspecified, with intractable migraine, so stated, without mention of status migrainosus Migraine Mitral valve disorders(424.0) Mitral valve disorder, MVP Other abnormal blood chemistry Abnormality in Genetic testing, Alpha 1 Antitrypsin Deficiency Seasonal allergies PAST SURGICAL HISTORY Procedure Laterality Date COLPOSCOPY CERVIX UPPER/ADJACENT VAGINA 2005 Colposcopy no abn PAST SURGICAL HISTORY OF 2 foot surgeries- bunions and hammar toes PAST SURGICAL HISTORY OF WISDOM TEETH ALLERGIES Benzoyl Peroxide MEDICATIONS Current Outpatient Medications Medication Sig fluticasone propionate (FLONASE NASAL) Use in the nose. MULTIVITAMIN ORAL Take by mouth. fexofenadine/pseudoephedrine (NEGIN-D 24 HOUR ORAL) Take by mouth. L. acidophilus-L. rhamnosus 15 billion cell cap Take 1 capsule by mouth once daily. [facility] WOMEN. If on antibiotic, take at least 1-2 hours before or after antibiotic. KEEP REFRIGERATED No current facility-administered medications for this visit. FAMILY HISTORY Problem Relation Age of Onset Hypertension Mother other (chrons disease) Mother , d/t complications from liver failure at age 61 other (Fibroid) Mother Surgical removed No Known Problems Father other (testicular cancer) Brother Breast Cancer Maternal Grandmother Heart Attack Maternal Grandfather fatal ID at age 50s Cancer Paternal Grandmother ovarian Cervical Cancer Paternal Aunt Social History Tobacco Use Smoking status: Never Smokeless tobacco: Never Vaping Use Vaping Use: Never used Substance Use Topics Alcohol use: Yes Alcohol/week: 5.0 standard drinks of alcohol Types: 2 Glasses of Wine (5oz) per week Drug use: No REVIEW OF SYSTEMS GENERAL: No weight loss, malaise or fevers/chills HEENT: Negative for frequent or significant headaches, No changes in hearing or vision. NECK: Negative for lumps, goiter, pain and significant neck swelling RESPIRATORY: Negative for cough, hemoptysis, wheezing, dyspnea or shortness of breath CARDIOVASCULAR: Negative for chest pain, leg swelling, orthopnea, or palpitations GI: No nausea, vomiting, or diarrhea/constipation. No hematochezia/melena. No heartburn or reflux symptoms. : No history of dysuria, frequency or incontinence MUSCULOSKELETAL: Negative for joint pain or swelling. SKIN: Negative for lesions, rash, and itching ENDOCRINE: Negative for cold or heat intolerance, polyuria, polydipsia and goiter NEURO: No history of headaches, syncope, paralysis, seizures or tremors MOOD: + Anxiety/Difficulty sleeping EXAM: BP 128/70 Pulse 83 Resp 18 LMP 07/15/2022 (Exact Date) SpO2 97% PHYSICAL EXAM: General Appearance: Well appearing, alert, in no acute distress, well-hydrated, well nourished. Skin: Skin color, texture, turgor normal, no suspicious rashes or lesions. Head: Normocephalic, no masses, lesions, tenderness or abnormalities. Eyes: Anicteric sclera. Extraocular movements are intact. Lungs: Lungs clear to auscultation. No wheezing, rhonchi, rales. Heart: RRR without murmur, gallop, or rubs. No ectopy. Extremities: No deformities, edema, skin discoloration, clubbing or cyanosis. Good capillary refill. Peripheral Pulses: Normal, Capillary refill <2secs, strong peripheral pulses, Pulses palpable. Neurologic: Gait normal. Reflexes normal and symmetric. Sensation grossly intact. Mood: Pleasant, good eye contact, engaged. ASSESSMENT/PLAN: 1. POLLO (generalized anxiety disorder) - ICD9: 300.02, ICD10: F41.1 (primary diagnosis) - Start Paxil 10 mg daily. - Medication education and instructions discussed. - Discussed adding on hydroxyzine in the future if needed for increased anxiety or difficulty sleeping. - PAROXETINE 10 MG TABLET 2. Brain fog - ICD9: 799.59, ICD10: R41.89 - Get labs completed. - CBC + DIFF - COMP METABOLIC PANEL - TSH BLD - VITAMIN B12 BLOOD - VITAMIN D 25 HYDROXY - FOLATE SERUM 3. Lack of concentration - ICD9: 799.51, ICD10: R41.840 - CBC + DIFF - COMP METABOLIC PANEL - TSH BLD - VITAMIN B12 BLOOD - VITAMIN D 25 HYDROXY - FOLATE SERUM - PAROXETINE 10 MG TABLET Follow-up in 1 month or sooner as needed. Discussed treatment plan and patient voices understanding. Patient's questions answered appropriately. Medications and potential side effects were discussed and patient voices understanding. Amilcar Garcia APRN.OTOLARYNGOLOGY PHYSICIAN This note was partially generated using [employer] recognition system. Note was reviewed for accuracy. There may be minor misspellings or grammar miscues with [employer] voice recognition. documented in this encounter [facility] 08-05-2022 Note HNO ID: [id number] Author: Rosalinda Ramirez APRN.CNM Service: ? Author Type: Clinical Cytogeneticist Type: Progress Notes Filed: 08/05/2022 3:33 PM Note Text: Mary is a 41 year old who presents for an annual gynecologic exam without complaints. Noticing some increasing anxiety during cycle- thinks may get screened for ADD. Requests yearly PAP screenings. Menses: cycles every 27-29 days Contraception: vasectomy HPV vaccine: No Last Pap: 08/11/2021 normal HPV: 08/07/2021 negative History of abnormal pap: early colposcopy Last mammogram: 2021 Sexually active: Yes History of STDS: HPV Pain with intercourse: No Postcoital bleeding: No Hot flashes: No Night sweats: Yes-occasional Vaginal dryness: Yes OB History T1 L2 SAB1 IAB0 Ectopic0 Multiple0 Live Births2 [employer] History LMP: 07/15/2022 (Exact Date), Having periods Age at Menarche: Age at First : Age at Menopause: [employer] History Comments: Sexual Activity: Yes; Male Contraception: Condom PAST MEDICAL HISTORY Diagnosis Date Nccbq-4-qbuoljbagdz 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 Cervical high risk human papillomavirus (HPV) DNA test positive 2004 [place] Migraine, unspecified, with intractable migraine, so stated, without mention of status migrainosus Migraine Mitral valve disorders(424.0) Mitral valve disorder, MVP Other abnormal blood chemistry Abnormality in Genetic testing, Alpha 1 Antitrypsin Deficiency Seasonal allergies PAST SURGICAL HISTORY Procedure Laterality Date COLPOSCOPY CERVIX UPPER/ADJACENT VAGINA 2004 Colposcopy no abn PAST SURGICAL HISTORY OF 2 foot surgeries- bunions and hammar toes PAST SURGICAL HISTORY OF WISDOM TEETH FAMILY HISTORY Problem Relation Age of Onset Hypertension Mother other (chrons disease) Mother , d/t complications from liver failure at age 61 other (Fibroid) Mother Surgical removed No Known Problems Father other (testicular cancer) Brother Breast Cancer Maternal Grandmother Heart Attack Maternal Grandfather fatal ID at age 50s Cancer Paternal Grandmother ovarian Cervical Cancer Paternal Aunt SOCIAL HISTORY Social History Tobacco Use Smoking status: Never Smokeless tobacco: Never Vaping Use Vaping Use: Never used Substance Use Topics Alcohol use: Yes Alcohol/week: 5.0 standard drinks Types: 2 Glasses of Wine (5oz) per week Drug use: No REVIEW OF SYSTEMS Abdomen: No abdominal pain, nausea, vomiting, diarrhea, or constipation. No bloating, early satiety, indigestion, or increased flatulence. Bladder: No dysuria, gross hematuria, urinary frequency, urinary urgency, or incontinence. Breast: No breast lumps, nipple d/c, overlying skin changes, redness or skin retraction. Allergies and current medication updated:Yes EXAM: BP 114/70 Ht 6' 3 (1.91m) Wt 216 lb (98.0kg) LMP 07/15/2022 BMI 27.00 kg/(m2). GENERAL: pleasant, female in no apparent distress HEENT: Normocephalic, atraumatic, mucus membranes moist, and no lesions NECK: Supple and full range of motion DERMATOLOGY: Normal and without lesions BREAST: soft, non-tender, symmetric, no dominant mass, normal nipple-areolar complex, no lymphadenopathy, and no nipple discharge CHEST: Normal inspiratory effort ABDOMEN: soft, non-tender, and no masses PELVIC: external genitalia normal, normal Bartholin's glands, urethra, Quinebaug's glands, no vulvar lesions, no cervical lesions, good vaginal support, physiologic discharge present, normal appearing perineal body and perianal region BIMANUAL: uterus normal size, shape and consistency, no adnexal masses, non-tender, and no cervical motion tenderness RECTOVAGINAL: deferred. NEURO: alert and oriented x3,exam grossly non-focal EXTREMITIES: normal ASSESSMENT/PLAN: 1) Health maintenance: Pap done with HPV. Mammogram ordered. 2) Contraception: vasectomy. 3) STD screening: Declined STD check. 4) Follow up one year or sooner as needed Rosalinda Ramirez APRN.[facility] 08-05-2022 History of Presen t illness Narrative Mary is a 41 year old who presents for an annual gynecologic exam without complaints. Noticing some increasing anxiety during cycle- thinks may get screened for ADD. Requests yearly PAP screenings. Menses: cycles every 27-29 days Contraception: vasectomy HPV vaccine: No Last Pap: 08/11/2021 normal HPV: 08/07/2021 negative History of abnormal pap: early colposcopy Last mammogram: 2021 Sexually active: Yes History of STDS: HPV Pain with intercourse: No Postcoital bleeding: No Hot flashes: No Night sweats: Yes-occasional Vaginal dryness: Yes OB History T1 L2 SAB1 IAB0 Ectopic0 Multiple0 Live Births2 [employer] Work[employer] History LMP: 07/15/2022 (Exact Date), Having periods Age at Menarche: Age at First : Age at Menopause: [employer] Worker History Comments: Sexual Activity: Yes; Male Contraception: Condom PAST MEDICAL HISTORY Diagnosis Date Nqafs-0-znkjyrsnwaq 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 Cervical high risk human papillomavirus (HPV) DNA test positive 2004 [place] Migraine, unspecified, with intractable migraine, so stated, without mention of status migrainosus Migraine Mitral valve disorders(424.0) Mitral valve disorder, MVP Other abnormal blood chemistry Abnormality in Genetic testing, Alpha 1 Antitrypsin Deficiency Seasonal allergies PAST SURGICAL HISTORY Procedure Laterality Date COLPOSCOPY CERVIX UPPER/ADJACENT VAGINA 2004 Colposcopy no abn PAST SURGICAL HISTORY OF 2 foot surgeries- bunions and hammar toes PAST SURGICAL HISTORY OF WISDOM TEETH FAMILY HISTORY Problem Relation Age of Onset Hypertension Mother other (chrons disease) Mother , d/t complications from liver failure at age 61 other (Fibroid) Mother Surgical removed No Known Problems Father other (testicular cancer) Brother Breast Cancer Maternal Grandmother Heart Attack Maternal Grandfather fatal ID at age 50s Cancer Paternal Grandmother ovarian Cervical Cancer Paternal Aunt SOCIAL HISTORY Social History Tobacco Use Smoking status: Never Smokeless tobacco: Never Vaping Use Vaping Use: Never used Substance Use Topics Alcohol use: Yes Alcohol/week: 5.0 standard drinks Types: 2 Glasses of Wine (5oz) per week Drug use: No REVIEW OF SYSTEMS Abdomen: No abdominal pain, nausea, vomiting, diarrhea, or constipation. No bloating, early satiety, indigestion, or increased flatulence. Bladder: No dysuria, gross hematuria, urinary frequency, urinary urgency, or incontinence. Breast: No breast lumps, nipple d/c, overlying skin changes, redness or skin retraction. Allergies and current medication updated:Yes EXAM: BP 114/70 Ht 6' 3 (1.91m) Wt 216 lb (98.0kg) LMP 07/15/2022 BMI 27.00 kg/(m^2). GENERAL: pleasant, female in no apparent distress HEENT: Normocephalic, atraumatic, mucus membranes moist, and no lesions NECK: Supple and full range of motion DERMATOLOGY: Normal and without lesions BREAST: soft, non-tender, symmetric, no dominant mass, normal nipple-areolar complex, no lymphadenopathy, and no nipple discharge CHEST: Normal inspiratory effort ABDOMEN: soft, non-tender, and no masses PELVIC: external genitalia normal, normal Bartholin's glands, urethra, Quinebaug's glands, no vulvar lesions, no cervical lesions, good vaginal support, physiologic discharge present, normal appearing perineal body and perianal region BIMANUAL: uterus normal size, shape and consistency, no adnexal masses, non-tender, and no cervical motion tenderness RECTOVAGINAL: deferred. NEURO: alert and oriented x3,exam grossly non-focal EXTREMITIES: normal ASSESSMENT/PLAN: 1) Health maintenance: Pap done with HPV. Mammogram ordered. 2) Contraception: vasectomy. 3) STD screening: Declined STD check. 4) Follow up one year or sooner as needed Rosalinda Ramirez APRN.CNM documented in this encounter [facility] 02-21-2022 Instructions Roberta Carbajal APRN.CNP - 02/21/2022 1:01 PM EST BLADDER INFECTION OVERVIEW Bladder infections are one of the most common infections, causing symptoms of burning with urination and needing to urinate frequently. A bladder infection is a type of urinary tract infection (UTI). Bladder infections are more common is women than men. Most women have an uncomplicated bladder infection that is easily treated with a short course of antibiotics. In men, bladder infections may also affect the prostate gland, and a longer course of treatment may be needed. BLADDER INFECTION CAUSES The urinary tract includes the kidneys (which filter urine), ureters (the tube that carries urine from the kidneys to the bladder), the bladder (which stores urine), and urethra (the tube that carries urine out of the bladder). Bacteria do not normally live in these areas. However, bacteria normally live close to the urethra in women and men who are not circumcised. Bladder infections occur when bacteria travel up the urethra into the bladder. Factors that increase the risk of developing a bladder infection include: Vaginal sex Use of spermicides History of past bladder infections Diabetes In men, not being circumcised or having anal sex increase the risk of bladder infections. BLADDER INFECTION SYMPTOMS The typical symptoms of a bladder infection include: Pain or burning when urinating Frequent need to urinate Urgent need to urinate Blood in the urine Fever, back pain, nausea, or vomiting are not common symptoms of a bladder infection, but can occur in people with a kidney infection (pyelonephritis). If you have these symptoms, you should call your doctor or nurse immediately. Is it a bladder infection or something else? -- Burning with urination can also occur in people with vaginitis (eg, yeast infection) or urethritis (inflammation of the urethra). For this reason, it is important to call your healthcare provider before assuming you have a bladder infection. BLADDER INFECTION DIAGNOSIS Simple bladder infections are usually diagnosed based upon your symptoms alone. However, most patients, especially those who have bladder infection symptoms for the first time, should see a healthcare provider for urine testing. Urine culture -- A urine culture is a test that uses a sample of urine to try and grow bacteria in a laboratory. It usually requires about 48 hours to get results. However, a urine culture is not always required to diagnose a bladder infection. Urine culture is often recommended if: You have never had a bladder infection before You have symptoms that are not typical for bladder infection You have had resistant bladder infections before You have frequent bladder infections You do not begin to feel better within 24 to 48 hours after starting antibiotics You are BLADDER INFECTION TREATMENT Bladder infection -- In young, healthy adolescents and adults with a bladder infection, the usual treatment includes a three to seven day course of antibiotics. The typical drugs chosen are: trimethoprim-sulfamethoxazole (Bactrim ), nitrofurantoin (Macrobid ), ciprofloxacin (Cipro ) or levofloxacin (Levaquin ). In men, the infection may involve your prostate gland and treatment is usually given for at least 7 days. Your symptoms should begin to resolve within one day after starting treatment. It is important to take the full course of antibiotics to completely eliminate the infection. If your symptoms persist for more than two or three days after starting treatment, call your healthcare provider. If needed, you can take a prescription medication that numbs the bladder and urethra (phenazopyridine [Pyridium ]) to reduce the burning pain of some UTIs. A similar medication is available without a prescription (eg, Uristat). Both medications change the color of the urine (usually blue or orange) and can interfere with laboratory testing. You should not take these medications for more than 48 hours due to the risk of side effects. These medications do not treat the infection and must be taken along with an antibiotic. Some providers recommend drinking more fluids while treating bladder infections to help flush bacteria from the bladder. Others believe that drinking more fluids may dilute the antibiotic in the bladder and make the medication less effective. No studies have been performed to address this issue. There are also no good studies on the effectiveness of cranberry juice for treating a bladder infection; we do not recommend using cranberry juice to treat bladder infections. Follow-up care -- Follow-up testing is not needed in healthy, young men or women with a bladder infection if symptoms resolve. women are usually asked to have a repeat urine culture one to two weeks after treatment has ended to make sure the bacteria are no longer in the urine. RECURRENT BLADDER INFECTIONS Bladder infections versus other causes -- Some adults, especially women, develop bladder infections frequently. In this case, it is important to confirm that your symptoms (eg, pain or burning, frequency, and urgency) are caused by a bladder infection. Symptoms are usually similar from one infection to another. The best way to confirm an infection is to have a urine culture. If your urine culture is negative for infection, other causes of pain, burning, and frequency should be investigated. There is no reason to take antibiotics if your urine culture is negative. Need for further testing -- If you continue to develop bladder infections, you may require further testing. If you continue to notice blood in your urine after your bladder infection has cleared, you should have further testing. Preventing recurrent UTIs -- Women with recurrent urinary tract infections may be advised to take steps to prevent bladder infections, including one or more of the following: Changes in control -- Women who develop frequent bladder infections and use spermicides, particularly those who also use a diaphragm, may be encouraged to use an alternate method of control. Cranberry products -- Taking cranberry juice or cranberry tablets has been promoted as one way to help prevent frequent bladder infections. However, this has not been proven. Drinking more fluid and urinating after intercourse -- Although studies have not proven that drinking more fluids or urinating soon after intercourse can prevent infection, some healthcare providers recommend these measures since they are not harmful. Drinking more fluid may help to wash out bacteria that enter the bladder. Postmenopausal women -- Postmenopausal women who develop recurrent bladder infections may benefit from using vaginal estrogen. Vaginal estrogen is available in a flexible ring that is worn in the vagina for three months (eg, Estring ), a small tablet (Vagifem ), or a cream (eg, Premarin or Estrace ). Vaginal estrogen is discussed in more detail in a separate topic review. Antibiotics -- A preventive antibiotic treatment may be recommended if you repeatedly develop bladder infections and have not responded to other preventive measures. Antibiotics are highly effective in preventing recurrent bladder infections and can be taken in several different ways. Preventive antibiotic -- You can take a low dose of an antibiotic once per day or three times per week for six months to several years. Antibiotics following intercourse -- In women who develop urinary tract infections after sex, taking a single low dose antibiotic after intercourse can help to prevent bladder infections. Self-treatment -- A plan to begin antibiotics at the first sign of a bladder infection may be recommended in some situations. Before starting this regimen, it is important that you have had testing (urine cultures) to confirm that your symptoms are caused by a bladder infection; some people have symptoms of a bladder infection but do not actually have an infection. documented in this encounter [facility] 02-21-2022 History of Presen t illness Narrative Telemedicine Visit - Distance Health Virtual Visit Note Patient seen on [employer] Online platform. Location of patient: [place] History of Present Illness Yennifer Headley is a 41 year old old female with a history of UTI symptoms for 2 days. Urinary symptoms ROS: Positive for Dysuria, Increase in frequency of urination, and Urgency, Negative for Sense of incomplete void, Fevers, Vomiting, Diarrhea, Abdominal pain , Back/Flank pain, Blood in urine, and Vaginal itch or discharge No foul odor or urine cloudiness Chance of : No, currently on menstrual period Sexually active: yes; no concerns for STIs Any self-treatment attempted: Yes Number of previous UTI's in last 6 months:0 Number of previous UTI's in last 12 months: 0 Alleviating Factors include Increasing fluids with no relief in symptoms. 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 high risk human papillomavirus (HPV) DNA test positive 2004 [place] Migraine, unspecified, with intractable migraine, so stated, without mention of status migrainosus Migraine Mitral valve disorders(424.0) Mitral valve disorder, MVP Other abnormal blood chemistry Abnormality in Genetic testing, Alpha 1 Antitrypsin Deficiency Seasonal allergies PAST SURGICAL HISTORY Procedure Laterality Date COLPOSCOPY CERVIX UPPER/ADJACENT VAGINA 2004 Colposcopy no abn PAST SURGICAL HISTORY OF 2 foot surgeries- bunions and hammar toes PAST SURGICAL HISTORY OF WISDOM TEETH FAMILY HISTORY Problem Relation Age of Onset Hypertension Mother other (chrons disease) Mother , d/t complications from liver failure at age 61 other (Fibroid) Mother Surgical removed No Known Problems Father other (testicular cancer) Brother Breast Cancer Maternal Grandmother Heart Attack Maternal Grandfather fatal ID at age 50s Cancer Paternal Grandmother ovarian Cervical Cancer Paternal Aunt Social History Tobacco Use Smoking status: Never Smokeless tobacco: Never Vaping Use Vaping Use: Never used Substance Use Topics Alcohol use: Not Currently Alcohol/week: 5.0 standard drinks Types: 2 Glasses of Wine (5oz) per week Comment: occasional, NOT WHILE Drug use: No ALLERGIES Allergen Reactions Benzoyl Peroxide Hives Current Outpatient Medications Medication Sig nitrofurantoin monohydrate and macrocrystal (MACROBID) 100 mg capsule Take 1 capsule by mouth twice daily for 5 days. fluticasone propionate (FLONASE NASAL) Use in the nose. MULTIVITAMIN ORAL Take by mouth. fexofenadine/pseudoephedrine (NEGIN-D 24 HOUR ORAL) Take by mouth. L. acidophilus-L. rhamnosus 15 billion cell cap Take 1 capsule by mouth once daily. FLORAJEN WOMEN. If on antibiotic, take at least 1-2 hours before or after antibiotic. KEEP REFRIGERATED No current facility-administered medications for this visit. Video Exam (Examination performed via Video enabled technology) General Appearance: 41 year old yo female in NAD; not ill or toxic appearing Abdomen: non-tender by self palpation CVA Tenderness: non-tender bilaterally by self palpation ASSESSMENT/PLAN: 1. Acute cystitis without hematuria - ICD9: 595.0, ICD10: N30.00 Discussed etiology and rationale for treatment - NITROFURANTOIN MONOHYDRATE & MACROCRYSTAL 100 MG ORAL CAP - Increase fluids - Empty bladder completely - Can take OTC AZO (as directed on the box) for additional relief - Follow up if symptoms persist or sooner if symptoms worsen. - Red flags discussed for in person care and follow up - All questions answered Roberta Carbajal APRN.CNP If you let us know who your primary care provider is, we will send them a notification of today s visit through our electronic medical records system. Since not all providers have access to our notifications, we strongly encourage you to share the following record of today s visit with your primary care provider at your next visit. This will help in providing you the best care. If you do not have an established Primary Care physician and would like to continue care with a [facility] Virtual Primary Care physician, please ask your provider to place a Establish Primary Care order. Use [employer] for [employer] Glass to manage your care, wherever you are, 27/09, on your mobile device or computer. [employer] for [employer] connects you to [employer] so you can access all your health information in one place and also schedule and request virtual appointments with primary care providers. documented in this encounter [facility] 01-11-2022 Miscellaneous Notes January 12, 2022 PID: [id number] Yennifer Headley [address] [address] Dear Ms. Headley, We are pleased to inform you that the results of your recent breast imaging exam on 01/11/2022 are normal. Your mammogram demonstrates that you have dense breast tissue, which could hide abnormalities. Dense breast tissue, in and of itself, is a relatively common condition. Therefore, this information is not provided to cause undue concern; rather, it is to raise your awareness and promote discussion with your health care provider regarding the presence of dense breast tissue in addition to other risk factors. Early detection of cancer is very important. We also understand recommendations regarding breast cancer screening are controversial. Please discuss with your primary care provider which strategy is best for you and whether a mammogram is right for you. Your imaging studies and report will be kept on file at [facility] as part of your permanent medical record and are available for your continuing care. Thank you for allowing us to help in meeting your health care needs. Sincerely, Dr. Vo Interpreting Radiologist [facility] (Normal over 40) documented in this encounter [facility] 08-04-2021 Instructions Rosalinda Ramirez APRN.CNM - 08/04/2021 11:08 AM EDT Non-Hormonal Vaginal Lubricants & Vaginal Moisturizers Symptoms of vaginal dryness can be managed by the regular use of vaginal moisturizing agents with supplemental use of vaginal lubricants for sexual intercourse. . Use of vaginal moisturizers and lubricants alone is effective treatment for vaginal dryness or dyspareunia (pain with intercourse) in some patients. Vaginal lubrications- Vaginal lubricants are designed to reduce friction and discomfort from dryness during sexual intercourse. The lubricant is applied inside the vagina and/or on the partner's penis or fingers just before sex. Coconut, [place], Avocado or Peanut oil- natural oils are not recommended for use with latex condoms or diaphragms as they can damage the latex Astroglide- has both water and silicone based KY Jelly- water based Just like me Pure Romance Almost Naked Good Clean Love Bio Nude ultra-sensitive Pjur- silicone ID Millennium- silicone Vaginal Moisturizers- Vaginal moisturizers are intended for use routinely, typically two or three days per week, not just during sexual activity. These products are typically bioadhesives. Many moisturizer products are available in pharmacies and online. Restore- [employer] Replens Mendez Feminease Moist Again K-Y Liquid beads Products to assist with maintaining vaginal ph IsoFresh [email or web address] BiopHresh Rephresh documented in this encounter [facility] 08-04-2021 History of Presen t illness Narrative Mary is a 40 year old who presents for an annual gynecologic exam without complaints. Menses: cycles every every 26 days lasting 4 days - reports not heavy or painful Contraception: vasectomy HPV vaccine: No Last Pap: 07/25/2020 normal - requests PAP today HPV: 07/24/2020 negative History of abnormal pap: Yes 2004- colp normal Last mammogram: 2020normal Sexually active: Yes History of STDS: HPV Pain with intercourse: No Postcoital bleeding: No Hot flashes: No Night sweats: Yes-occasional Vaginal dryness: Yes OB History T1 L2 SAB1 IAB0 Ectopic0 Multiple0 Live Births2 [employer] Work[employer] History LMP: 07/28/2021, Having periods Age at Menarche: Age at First : Age at Menopause: [employer] Worker History Comments: Sexual Activity: Yes; Male Contraception: Condom PAST MEDICAL HISTORY Diagnosis Date Qlnmj-6-ufqefodfert 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 Cervical high risk human papillomavirus (HPV) DNA test positive 2004 [place] Migraine, unspecified, with intractable migraine, so stated, without mention of status migrainosus Migraine Mitral valve disorders(424.0) Mitral valve disorder, MVP Other abnormal blood chemistry Abnormality in Genetic testing, Alpha 1 Antitrypsin Deficiency Seasonal allergies PAST SURGICAL HISTORY Procedure Laterality Date COLPOSCOPY CERVIX UPPER/ADJACENT VAGINA 2004 Colposcopy no abn PAST SURGICAL HISTORY OF 2 foot surgeries- bunions and hammar toes PAST SURGICAL HISTORY OF WISDOM TEETH FAMILY HISTORY Problem Relation Age of Onset Hypertension Mother other (chrons disease) Mother , d/t complications from liver failure at age 61 other (Fibroid) Mother Surgical removed No Known Problems Father other (testicular cancer) Brother Breast Cancer Maternal Grandmother Heart Attack Maternal Grandfather fatal ID at age 50s Cancer Paternal Grandmother ovarian Cervical Cancer Paternal Aunt SOCIAL HISTORY Social History Tobacco Use Smoking status: Never Smoker Smokeless tobacco: Never Used Vaping Use Vaping Use: Never used Substance Use Topics Alcohol use: Not Currently Alcohol/week: 5.0 standard drinks Types: 2 Glasses of Wine (5oz) per week Comment: occasional, NOT WHILE Drug use: No REVIEW OF SYSTEMS Abdomen: No abdominal pain, nausea, vomiting, diarrhea, or constipation. No bloating, early satiety, indigestion, or increased flatulence. Bladder: No dysuria, gross hematuria, urinary frequency, urinary urgency, or incontinence. Breast: No breast lumps, nipple d/c, overlying skin changes, redness or skin retraction. Allergies and current medication updated:Yes EXAM: BP 120/78 Ht 6' 3 (1.91m) Wt 224 lb (101.6kg) LMP 07/28/2021 BMI 28.00 kg/(m^2). GENERAL: pleasant, female in no apparent distress HEENT: Normocephalic and atraumatic NECK: Supple, full range of motion and no adenopathy DERMATOLOGY: Normal and without lesions BREAST: soft, non-tender, symmetric, no dominant mass, normal nipple-areolar complex, no lymphadenopathy and no nipple discharge CHEST: Normal inspiratory effort ABDOMEN: soft, non-tender and no masses PELVIC: external genitalia normal, normal Bartholin's glands, urethra, Quinebaug's glands, no vulvar lesions, no cervical lesions, good vaginal support, physiologic discharge present, normal appearing perineal body and perianal region BIMANUAL: uterus normal size, shape and consistency, no adnexal masses, non-tender and no cervical motion tenderness RECTOVAGINAL: deferred. NEURO: alert and oriented x3,exam grossly non-focal EXTREMITIES: normal ASSESSMENT/PLAN: 1) Health maintenance: Pap done with HPV- patient requests PAP today due to hx of abnormal and family history of cervical/ovarian cancer Mammogram ordered. Nutrition, exercise and routine health maintenance exams reviewed. 2) Contraception: vasectomy. 3) STD screening: Declined STD check. Routine labs of CBC and TSH ordered 4) Follow up one year or sooner as needed Rosalinda Ramirez APRN.CNM documented in this encounter [facility] documented as of this encounter (statuses as of 08/04/2021) [facility]05-10-2013 History of Past illness Narrative* Problem Noted Date Resolved Date Vaginal bleeding in 07/14/2012 Overview: 07/14/12 - pt seen for VB, suspect retroplacental clot is resolving - KK History of miscarriage 06/05/2012 3 Overview: 06/05/2012She had a miscarriage January 12, 2012. She states she has noted some pelvic cramping for the past 2 weeks she rates on a scale as a 1. She believes the cramping is less this week the last week. She denies any bleeding. Discussed with Dr. Garcia. Patient is to call/come in if she develops any bleeding, worsening pain, or PRN problems.since Supervision of normal 12/16/2011 06/03/2015 Overview: Girl on us- Surveillance of previously p rescribed intrauterine contraceptive device 04/07/2010 12/16/2011 documented as of this encounter (statuses as of 01/14/2022) [facility] History of Past illness Narrative* Problem Noted Date Resolved Date Vaginal bleeding in 07/14/2012 Overview: 07/14/12 - pt seen for VB, suspect retroplacental clot is resolving - KK History of miscarriage 06/05/2012 3 Overview: 06/05/2012Francia had a miscarriage January 12, 2012. She states she has noted some pelvic cramping for the past 2 weeks she rates on a scale as a 1. She believes the cramping is less this week the last week. She denies any bleeding. Discussed with Dr. Garcia. Patient is to call/come in if she develops any bleeding, worsening pain, or PRN problems.since Supervision of normal 12/16/2011 06/03/2015 Overview: Girl on us- Surveillance of previously p rescribed intrauterine contraceptive device 04/07/2010 12/16/2011 documented as of this encounter (statuses as of 02/21/2022) [facility] History of Past illness Narrative* Problem Noted Date Resolved Date Vaginal bleeding in 07/14/2012 Overview: 07/14/12 - pt seen for VB, suspect retroplacental clot is resolving - KK History of miscarriage 06/05/2012 3 Overview: 06/05/2012Francia had a miscarriage January 12, 2012. She states she has noted some pelvic cramping for the past 2 weeks she rates on a scale as a 1. She believes the cramping is less this week the last week. She denies any bleeding. Discussed with Dr. Garcia. Patient is to call/come in if she develops any bleeding, worsening pain, or PRN problems.since Supervision of normal 12/16/2011 06/03/2015 Overview: Girl on us- Surveillance of previously p rescribed intrauterine contraceptive device 04/07/2010 12/16/2011 documented as of this encounter (statuses as of 08/06/2022) [facility] History of Past illness Narrative* Problem Noted Date Diagnosed Date Resolved Date Vaginal bleeding in 07/14/2012 01/05/2013 Overview: 07/14/12 - pt seen for VB, suspect retroplacental clot is resolving - KK History of miscarriage 06/05/201201/05 Overview: 06/05/2012Francia had a miscarriage January 12, 2012. She states she has noted some pelvic cramping for the past 2 weeks she rates on a scale as a 1. She believes the cramping is less this week the last week. She denies any bleeding. Discussed with Dr. Garcia. Patient is to call/come in if she develops any bleeding, worsening pain, or PRN problems.since Supervision of normal 12/16/2011 06/03/2015 Overview: Girl on us- Surveillance of previously p rescribed intrauterine contraceptive device 04/07/20102011 documented as of this encounter (statuses as of 09/16/2022) [facility] History of Past illness Narrative* Problem Noted Date Diagnosed Date Resolved Date Vaginal bleeding in 07/14/2012 01/05/2013 Overview: 07/14/12 - pt seen for VB, suspect retroplacental clot is resolving - KK History of miscarriage 06/05/201201/05 Overview: 06/05/2012Francia had a miscarriage January 12, 2012. She states she has noted some pelvic cramping for the past 2 weeks she rates on a scale as a 1. She believes the cramping is less this week the last week. She denies any bleeding. Discussed with Dr. Garcia. Patient is to call/come in if she develops any bleeding, worsening pain, or PRN problems.since Supervision of normal 12/16/2011 06/03/2015 Overview: Girl on us- Surveillance of previously p rescribed intrauterine contraceptive device 04/07/20102011 documented as of this encounter (statuses as of 09/20/2022) [facility] History of Past illness Narrative* Problem Noted Date Diagnosed Date Resolved Date Vaginal bleeding in 07/14/2012 01/05/2013 Overview: 07/14/12 - pt seen for VB, suspect retroplacental clot is resolving - KK History of miscarriage 06/05/201201/05 Overview: 06/05/2012Francia had a miscarriage January 12, 2012. She states she has noted some pelvic cramping for the past 2 weeks she rates on a scale as a 1. She believes the cramping is less this week the last week. She denies any bleeding. Discussed with Dr. Garcia. Patient is to call/come in if she develops any bleeding, worsening pain, or PRN problems.since Supervision of normal 12/16/2011 06/03/2015 Overview: Girl on us- Surveillance of previously p rescribed intrauterine contraceptive device 04/07/20102011 documented as of this encounter (statuses as of 01/18/2023) [facility] History of Past illness Narrative* Problem Noted Date Diagnosed Date Resolved Date Vaginal bleeding in 07/14/2012 01/05/2013 Overview: 07/14/12 - pt seen for VB, suspect retroplacental clot is resolving - KK History of miscarriage 06/05/201201/05 Overview: 06/05/2012Gerardoe had a miscarriage January 12, 2012. She states she has noted some pelvic cramping for the past 2 weeks she rates on a scale as a 1. She believes the cramping is less this week the last week. She denies any bleeding. Discussed with Dr. Garcia. Patient is to call/come in if she develops any bleeding, worsening pain, or PRN problems.since Supervision of normal 12/16/2011 06/03/2015 Overview: Girl on us- Surveillance of previously p rescribed intrauterine contraceptive device 04/07/20102011 documented as of this encounter (statuses as of 01/19/2023) [facility] Encounter for gynecological examination (general) (routine) without abnormal findings Encounter for screening mammogram for breast cancer [facility] Diagnosis Acute cystitis without hematuria- Primary Acute cystitis [facility] Diagnosis Encounter for gynecological examination (general) (routine) without abnormal findings- Primary Encounter for screening mammogram for breast cancer Dense breast tissue [facility] Diagnosis POLLO (generalized anxiety disorder)- Primary Generalized anxiety disorder Brain fog Lack of concentration Attention or concentration deficit [facility] Encounter for screening mammogram for breast cancer Dense breast tissue documented in this encounter [facility] for referral (narrative)* Diagnostic Procedure Only (Routine) - Authorized Specialty Diagnoses / Procedures Referred By Hayley del real Referred To Contact [facility] Diagnoses Encounter for gynecological examination (general) (routine) without abnormal findings Procedures ZEV SCREENING W BELINDA SCREENING DIGITAL BREAST TOMOSYNTHESIS BI SCREENING MAMMOGRAPHY BI 2-VIEW BREAST INC Rosalinda Collier APRN.PRO [address] [place] [address] [facility] [address] [place] [address] Referral ID Status Reason Start Date Expiration Date Visits Requested Visits Authorized [id number] Authorized Auto-Generat ed Referral 08/04/2021 09/03/2022 1 1 [facility] for referral (narrative)* Diagnostic Procedure Only (Routine) - Authorized Specialty Diagnoses / Procedures Referred By Contac t Referred To Contact [facility] Diagnoses Encounter for screening mammogram for breast cancer Dense breast tissue Procedures ZEV SCREENING W BELINDA SCREENING DIGITAL BREAST TOMOSYNTHESIS BI SCREENING MAMMOGRAPHY BI 2-VIEW BREAST INC Rosalinda Collier APRN.CNM [address] [place] [place] [address] [facility] [address] [place] [address] Referral ID Status Reason Start Date Expiration Date Visits Requested Visits Authorized [id number] Authorized Auto-Generat ed Referral 08/05/2022 09/04/2023 1 1 [facility] for referral (narrative)* Diagnostic Procedure Only (Routine) - Closed Specialty Diagnoses / Procedures Referred By Hayley t Referred To Contact [facility] Diagnoses Encounter for screening mammogram for breast cancer Dense breast tissue Procedures ZEV SCREENING W BELINDA SCREENING DIGITAL BREAST TOMOSYNTHESIS BI SCREENING MAMMOGRAPHY BI 2-VIEW BREAST INC Rosalinda Collier APRN.CNM [address] [place] [place] [address] [facility] [address] [place] [address] Referral ID Status Reason Start Date Expiration Date V isits Requested Visits Authorized [id number] Closed Auto-Generate d Referral 08/05/2022 09/04/2023 1 1 [facility] for visit Narrative* Diagnostic Procedure Only (Routine) - Closed Specialty Diagnoses / Procedures Referred By Contac t Referred To Contact [facility] Diagnoses Encounter for screening mammogram for breast cancer Dense breast tissue Procedures ZEV SCREENING W BELINDA SCREENING DIGITAL BREAST TOMOSYNTHESIS BI SCREENING MAMMOGRAPHY BI 2-VIEW BREAST INC Rosalinda Collier APRN.CNM [address] [place] [address] [facility] [address] [place] [address] Referral ID Status Reason Start Date Expiration Date V isits Requested Visits Authorized [id number] Closed Auto-Generate d Referral 08/05/2022 09/04/2023 1 1 [facility] Summary Purpose Family History No Family History Records FoundNo Family History Records FoundNo Family History Records Found Advance Directives No Advanced Directives Records FoundNo Advanced Directives Records FoundNo Advanced Directives Records Found Additional Source Comments INFORMATION SOURCE (unrecogn ized section and content) DATE CREATED AUTHOR AUTHOR'S ORGANIZ ATION 12/06/2018 [facility] DATE CREATED AUTHOR AUTHOR'S ORGANIZ ATION 04/07/2023 [facility] Source Comments (unrecognize d section and content) In the event this informatio n is protected by the Federal Confidentiality of Alcohol and Drug Abuse Patient Records regulations: The Federal rules restrict any use of the information to criminally investigate or prosecute any alcohol or drug abuse patient.[facility] the event this information is protected by the Federal Confidentiality of Alcohol and Drug Abuse Patient Records regulations: The Federal rules restrict any use of the information to criminally investigate or prosecute any alcohol or drug abuse patient.[facility] the event this information is protected by the Federal Confidentiality of Alcohol and Drug Abuse Patient Records regulations: The Federal rules restrict any use of the information to criminally investigate or prosecute any alcohol or drug abuse patient.[facility] the event this information is protected by the Federal Confidentiality of Alcohol and Drug Abuse Patient Records regulations: The Federal rules restrict any use of the information to criminally investigate or prosecute any alcohol or drug abuse patient.[facility] the event this information is protected by the Federal Confidentiality of Alcohol and Drug Abuse Patient Records regulations: The Federal rules restrict any use of the information to criminally investigate or prosecute any alcohol or drug abuse patient.[facility] the event this information is protected by the Federal Confidentiality of Alcohol and Drug Abuse Patient Records regulations: The Federal rules restrict any use of the information to criminally investigate or prosecute any alcohol or drug abuse patient.[facility] the event this information is protected by the Federal Confidentiality of Alcohol and Drug Abuse Patient Records regulations: The Federal rules restrict any use of the information to criminally investigate or prosecute any alcohol or drug abuse patient.[facility] the event this information is protected by the Federal Confidentiality of Alcohol and Drug Abuse Patient Records regulations: The Federal rules restrict any use of the information to criminally investigate or prosecute any alcohol or drug abuse patient.[facility] Reason for Visit (unrecogniz ed section and content) Reason Comments UTI Reason Comments Anxiety Reason Comments Results Labs Care Teams (unrecognized sec tion and content) [employer] Relationship Specialty Start Date End Date Carlos Alberto Fraire MD [address], [place] [phone] PCP - General Family Medicine 06/16/10 [employer] Relationship Specialty Start Date End Date Carlos Alberto Fraire MD [address], [place] [phone] PCP - General Family Medicine 06/16/10 [employer] Relationship Specialty Start Date End Date Carlos Alberto Fraire MD [address], [place] [phone] PCP - General Family Medicine 06/16/10 [employer] Relationship Specialty Start Date End Date Carlos Alberto Fraire MD [address], [place] [phone] PCP - General Family Medicine 06/16/10 [employer] Developer Relationship Specialty Start Date End Date Carlos Alberto Fraire MD [address] [place] [address] PCP - General [facility] 06/16/10 [employer] Developer Relationship Specialty Start Date End Date Carlos Alberto Fraire MD [address] [place], [place] [id number] PCP - General [facility] 06/16/10 [employer] Developer Relationship Specialty Start Date End Date Carlos Alberto Fraire MD [address] [place], [place] [phone] PCP - General Family [facility] 06/16/10 FOR RECORDS PERTAINING TO PATIENTS WHO ARE OR HAVE BEEN ENROLLED IN A CHEMICAL DEPENDENCY/SUBSTANCEABUSE PROGRAM, SOME INFORMATION MAY BE OMITTED. This clinical summary was aggregated from multiple sources. Caution should be exercised in using it in the provision of clinical care. This summary normalizes information from multiple sources, and as a consequence, information in this document may materially change the coding, format and clinical context of patient data. In addition, data may be omitted in some cases. CLINICAL DECISIONS SHOULD BE BASED ON THE PRIMARY CLINICAL RECORDS. [facility]. provides no warranty or guarantee of the accuracy or completeness of information in this document.
[2023-04-08 20:50] LABS: AST(SGOT) 22 U/L (15-37); Alanine Aminotransfer ALT/SGPT 26 U/L (13-56); Alkaline Phosphatase 76 U/L (45-117); Anion Gap 6 (5-15); BUN 17 mg/dL (7-18); BUN/Creat Ratio 15.3 RATIO (10-20); Bilirubin, Direct 0.15 mg/dL (0.00-0.30); Calcium,Total 9.2 mg/dL (8.5-10.1); Chloride 110 mmol/L (98-107); Creatinine, Serum 1.11 mg/dL (0.55-1.02); EST Glomerular Filtration Rate 57 mL/min (>60); Est Glom Filt Rate - Afr Amer 69 mL/min (>60); Estimated Creatinine Clearance 89.21 ml/min; Globulin 3.1 g/dL (2.2-4.2); Glucose 117 mg/dL (74-106); Lipase 34 U/L (13-75); Potassium 3.8 mmol/L (3.5-5.1); Protein, Total 7.1 g/dL (6.4-8.2); Sodium Level 140 mmol/L (136-145)
[2023-04-08 20:54] LABS: Mucous, Urine 0 SEEN /hpf (<or=2+)
[2023-04-08 21:10] LABS: Color, Urine Yellow (Yellow); Glucose, Dipstick Normal (Normal); Ketone-Dipstick 15 mg/dl (Negative); Leukocyte Esterase-Dipstick 25 /ul (Negative); Nitrite-Dipstick Negative (Negative); Occult Blood-Urine 10 /ul (Negative); Protein-Dipstick Negative (Negative); Urine Bilirubin Dipstick Negative (Negative); Urine Clarity Sl. Cloudy (Clear); Urine Urobilinogen Normal (Normal)
--- NOTE | 2023-04-08 21:17 | EDS_ITS ---
HPI <Lilian Alvarado RN - Last Filed: 04/08/23 22:59> History of Present Illness Chief Complaint: Abd Pain Informant: patient and spouse/S.O. Onset/Context/Timing Onset: Weeks (2) Context: Gradual Onset Timing: Continuous Quality: Starting as dull pain turning sharp today. Location: Mid upper abdomen to right upper quadrant Current Severity: 5/10 Maximum Severity: 8/10 Worsened by: Eating and sitting Relieved by: Standing Associated Symptoms Associated Symptoms: Decreased appetite, weight loss of 12 pounds, nausea beginning today Narrative Narrative: Patient is a 42-year-old female with a recent diagnosis of GERD presenting with her for epigastric gastric and right upper quadrant pain for 2 weeks. Patient also reports decreased appetite associated with a 12 pound weight loss. Patient describes pain as dull turning to sharp today. Patient reports nausea beginning today. Patient reports pain is worse with eating and sitting, improved with standing. Patient has been following a bland diet for the past 2 weeks. Patient also reports chest pressure from the epigastric area rating up into the chest. Patient also reports loose stools x 2 days. Patient saw PCP on 04/04/2023 and prescribed Protonix without relief. Patient reports history of food getting stuck in which causes her to vomit approximately 10 times per year and concern for hernia. Patient reports normally drinking 3-4 beers per week. No alcohol use for the past 2 weeks. Prior similar symptoms: No Recent Illness/Hospitalization: No PFSH <Lilian Alvarado RN - Last Filed: 04/08/23 22:59> PFSH Medical History Anxiety GERD (gastroesophageal reflux disease) Migraines Mitral valve prolapse Home Medications lactobacillus combination no.4 3 billion cell capsule (Probiotic) 1 ea PO DAILY 01/22/13 [History Last Taken Unknown] hydrocortisone acetate 25 mg rectal suppository 25 mg OR DAILY PRN 04/08/23 [History Last Taken Unknown] ondansetron 4 mg disintegrating tablet 4 mg PO Q8H PRN PRN Nausea #10 tabs 04/08/23 [Rx Last Taken Unknown] pantoprazole 40 mg tablet,delayed release 40 mg PO DAILY 04/08/23 [History Last Taken Unknown] sertraline 50 mg tablet 25 mg PO Q24H 04/08/23 [History Last Taken Unknown] Allergy/AdvReac Type Severity Reaction Status Date / Time benzoyl peroxide Allergy Unknown Hives Verified 04/08/23 19:50 Surgical History History of bunionectomy of both great toes Social History Smoking Status: Never smoker ROS <Lilian Alvarado RN - Last Filed: 04/08/23 22:59> ROS ED Constitutional Constitutional ED: Reports weight loss and other Details: See HPI. ; Denies chills, fever(s) or sweats Cardiovascular Cardiovascular: Reports chest pain Respiratory/Chest Respiratory/Chest: Denies cough or dyspnea Gastrointestinal Gastrointestinal: Reports abdominal pain, diarrhea and nausea Genitourinary Genitourinary ED: Reports LMP (females 10-50) Details: Comment: (Menses was due to start 2 to 3 days ago and has not started at this time.); Denies dysuria or urinary frequency Musculoskeletal Musculoskeletal: Denies arthralgias or myalgias Integumentary Denies rash Neurologic Neurologic: Denies headache(s) or weakness Hematologic/Lymphatic Hematologic/Lymphatic: Reports systems reviewed and no addt'l complaints, except as documented EXAM <Lilian Alvarado RN - Last Filed: 04/08/23 22:59> Physical Exam Const Vital Signs: 04/08/23 19:50 04/08/23 20:31 Temperature 97.5 F L Temperature Source Temporal Pulse Rate 83 69 Respiratory Rate 16 18 Blood Pressure 114/72 123/68 H Blood Pressure Mean 86 86 Pulse Ox 97 100 Oxygen Delivery Method Room Air Room Air Positive well nourished and well developed General Appearance ED: well developed and NAD; Negative for diaphoretic HEENT Reports moist mucous membranes Eyes PERRL Chest Wall inspection of chest normal and palpation of chest normal Resp normal respiratory effort and clear to auscultation bilaterally Cardio regular rate, regular rhythm, S1 normal heart sound and S2 normal heart sound GI normal to inspection, nondistended, normoactive bowel sounds Palpation: soft and tender epigastric and RUQ Extremity normal to inspection Neuro oriented x3 Sensorium / Orientation: alert Motor Exam: strength 5/5 throughout Psych mental status grossly normal Skin no rashes or lesions noted <Dr. Selina Camilo MD - Last Filed: 04/08/23 23:02> Physical Exam Const Vital Signs: 04/08/23 19:50 04/08/23 20:31 Temperature 97.5 F L Temperature Source Temporal Pulse Rate 83 69 Respiratory Rate 16 18 Blood Pressure 114/72 123/68 H Blood Pressure Mean 86 86 Pulse Ox 97 100 Oxygen Delivery Method Room Air Room Air MDM <Lilian Alvarado RN - Last Filed: 04/08/23 22:59> MDM MDM Narrative Medical decision making narrative: IV line initiated. Lab work obtained to evaluate for leukocytosis, anemia, electrolyte derangement, and . Urinalysis obtained to evaluate for infection/hematuria. EKG obtained to evaluate for cardiac arrhythmia/ischemia. CT with IV contrast of abdomen and pelvis ordered to evaluate for hernias, pancreatitis, and gallbladder issues. History & Record Review Discussion w/independent historian: Patient and Family Lab Data Attestation: I reviewed the patient's lab results. Labs: Laboratory Results - last 24 hr 04/08/23 04/08/23 20:22 20:50 WBC 8.0 RBC 4.34 Hgb 13.2 Hct 40.1 MCV 92.4 MCH 30.4 MCHC 32.9 RDW Std Deviation 44.0 H RDW Coeff of Jonathon 12.9 Plt Count 195 MPV 10.8 Immature Gran % (Auto) 0.400 Neut % (Auto) 69.5 Lymph % (Auto) 20.1 Saunders % (Auto) 6.8 Eos % (Auto) 2.6 Baso % (Auto) 0.6 Absolute Neuts (auto) 5.6 Absolute Lymphs (auto) 1.61 Nucleated RBC % 0 Sodium 140 Potassium 3.8 Chloride 110 H Carbon Dioxide 24.0 Anion Gap 6 BUN 17 Creatinine 1.11 H Estim Creat Clear Calc 89.21 Est GFR (MDRD) Af Amer 69 Est GFR (MDRD) Non-Af 57 L BUN/Creatinine Ratio 15.3 Glucose 117 H Calcium 9.2 Total Bilirubin 0.30 Direct Bilirubin 0.15 AST 22 ALT 26 Alkaline Phosphatase 76 Total Protein 7.1 Albumin 4.0 Globulin 3.1 Lipase 34 Serum , Qual NEGATIVE Urine Color Yellow Urine Clarity Sl. Cloudy Urine pH 5.0 Ur Specific [place] 1.020 Urine Protein Negative Urine Glucose (UA) Normal Urine Ketones 15 H Urine Occult Blood 10 H Urine Nitrite Negative Urine Bilirubin Negative Urine Urobilinogen Normal Ur Leukocyte Esterase 25 H Urine RBC 0-5 SEEN Urine WBC 0-5 SEEN Ur Squamous Epith Cells 0-5 SEEN Urine Bacteria RARE Urine Mucus 0 SEEN Radiography Diagnostic Testing: Clinical Impression(s) from Imaging Studies Abdomen/Pelvis CT 04/08/23 20:12 IMPRESSION: Normal enhanced CT of the abdomen and pelvis. Electronically Signed: Brayan Bazan MD at 22:16 EST , EKG Initial EKG: Attestation: I personally reviewed and interpreted this EKG as follows: Interpretation: Sinus Rhythm and No Acute Injury Pattern Prior EKG tracings: not available for review Differential Diagnosis Chest pain/SOB: ACS Abdominal Pain: Cholecystitis, Pancreatitis and UTI Management Discussion w/another healthcare provider: Other (Dr. Camilo, ED Provider) Treatment and Re-Evaluation :: CBC was normal with a white count of 8.0, neutrophils 69.5%. Chemistry shows a slightly elevated chloride at 110, creatinine 1.11, glucose 117, normal lipase at 34. Serum was negative. Urine was positive for 15 ketones, 10 of blood, and [address] abdomen and pelvis was negative for hernias, cholecystitis, and pancreatitis. Patient was given a 1 L bolus of normal saline and 4 mg of Zofran with relief of nausea. Following normal saline and Zofran, patient reported pain was also improved describing as nagging and dull. Patient will be discharged home with a prescription for Zofran for nausea. Patient instructed may use [id number] Maalox or Mylanta for abdominal pain. Patient will continue home prescription for Protonix. Discussed plan with patient and . Both agreeable. <Dr. Selina Camilo MD - Last Filed: 04/08/23 23:02> [facility] Lab Data Labs: Laboratory Results - last 24 hr 04/08/23 04/08/23 20:22 20:50 WBC 8.0 RBC 4.34 Hgb 13.2 Hct 40.1 MCV 92.4 MCH 30.4 MCHC 32.9 RDW Std Deviation 44.0 H RDW Coeff of Jonathon 12.9 Plt Count 195 MPV 10.8 Immature Gran % (Auto) 0.400 Neut % (Auto) 69.5 Lymph % (Auto) 20.1 Saunders % (Auto) 6.8 Eos % (Auto) 2.6 Baso % (Auto) 0.6 Absolute Neuts (auto) 5.6 Absolute Lymphs (auto) 1.61 Nucleated RBC % 0 Sodium 140 Potassium 3.8 Chloride 110 H Carbon Dioxide 24.0 Anion Gap 6 BUN 17 Creatinine 1.11 H Estim Creat Clear Calc 89.21 Est GFR (MDRD) Af Amer 69 Est GFR (MDRD) Non-Af 57 L BUN/Creatinine Ratio 15.3 Glucose 117 H Calcium 9.2 Total Bilirubin 0.30 Direct Bilirubin 0.15 AST 22 ALT 26 Alkaline Phosphatase 76 Total Protein 7.1 Albumin 4.0 Globulin 3.1 Lipase 34 Serum , Qual NEGATIVE Urine Color Yellow Urine Clarity Sl. Cloudy Urine pH 5.0 Ur Specific [place] 1.020 Urine Protein Negative Urine Glucose (UA) Normal Urine Ketones 15 H Urine Occult Blood 10 H Urine Nitrite Negative Urine Bilirubin Negative Urine Urobilinogen Normal Ur Leukocyte Esterase 25 H Urine RBC 0-5 SEEN Urine WBC 0-5 SEEN Ur Squamous Epith Cells 0-5 SEEN Urine Bacteria RARE Urine Mucus 0 SEEN Radiography Diagnostic Testing: Clinical Impression(s) from Imaging Studies Abdomen/Pelvis CT 04/08/23 20:12 IMPRESSION: Normal enhanced CT of the abdomen and pelvis. Electronically Signed: Brayan Bazan MD at 22:16 EST , EKG Initial EKG: Comments: Sinus at 76 with no acute ischemia. Treatment and Re-Evaluation :: CBC was normal with a white count of 8.0, neutrophils 69.5%. Chemistry shows a slightly elevated chloride at 110, creatinine 1.11, glucose 117, normal lipase at 34. Serum was negative. Urine was positive for 15 ketones, 10 of blood, and [address] abdomen and pelvis was negative for hernias, cholecystitis, and pancreatitis. Patient was given a 1 L bolus of normal saline and 4 mg of Zofran with relief of nausea. Following normal saline and Zofran, patient reported pain was also improved describing as nagging and dull. Patient will be discharged home with a prescription for Zofran for nausea. Patient instructed may use [id number] Maalox or Mylanta for abdominal pain. Patient will continue home prescription for Protonix. Discussed plan with patient and . Both agreeable. Patient seen and evaluated with CHERYL student. I personally interviewed and examined the patient. I was involved in all aspects of patient's orders, interpretation of results, and treatment. Patient presents with upper abdominal pain for the past 2 weeks. She describes pain in the epigastrium and right upper quadrant that is worse with eating. She was seen by her PCP earlier this week and started on Protonix. Patient states the pain returned more sharp today so she presents for evaluation. She has had no fever or chills. She had some loose stools that are currently improving. Patient sitting upright in bed no acute distress. Nontoxic-appearing. Head and neck examination unremarkable. Heart is regular rate and rhythm. Lung sounds are clear. Abdomen is soft with tenderness in the epigastrium and right upper quadrant. No guarding or rebound. No palpable masses. Active bowel sounds are noted throughout. Patient given IV fluids and Zofran. She declines any analgesics. CBC was normal white count 8.0 with normal differential. Hemoglobin normal at 13.2. Chemistry studies significantly for a creatinine 1.11. Glucose is 117. LFTs are unremarkable. Lipase is normal at 34. test is negative. Urinalysis shows only 15 ketones with no evidence of infection. CT scan of the abdomen and pelvis with IV contrast is obtained and shows no acute abnormalities. EKG is sinus rhythm with no ischemia. On repeat evaluation patient resting more comfortably. She does report nausea is improved. Test results are discussed with her. She will continue Protonix at home and we will provide a prescription for Zofran. Patient encouraged to follow-up with her PCP within 1 to 2 weeks. She may require referral to GI for endoscopy if not improving. Return instructions given. Discharge Plan Triage Chief Complaint: Abd Pain ED Provider: Selina Camilo Dx/Rx/DC Orders Clinical Impression: Abdominal pain in female Instructions: ED Abdominal Pain Unkn Cause Fem Prescriptions: New ondansetron 4 mg tablet,disintegrating 4 mg PO Q8H PRN PRN (Reason: Nausea) Qty: 10 0RF No Action Probiotic 1 EACH capsule 1 ea PO DAILY pantoprazole 40 mg tablet,delayed release (DR/EC) 40 mg PO DAILY Patient Comments: TAKE 1 TABLET BY MOUTH EVERY DAY on an empty stomach 30 minutes before breakfast sertraline 50 mg tablet 25 mg PO Q24H Patient Comments: take 1/2 tablet by mouth once a day for 1 week, then increase to 1 tablet daily thereafter hydrocortisone acetate 25 mg suppository 25 mg OR DAILY PRN Patient Comments: unwrap and insert 1 Suppository rectally two times a day as needed (hemorrhoids/rectal pain). Primary Care Provider: Tarik Head Referrals: Tarik Head MD [Primary Care Provider] - Activity Restrictions/Additional Instructions: May use [id number] Maalox or Mylanta for abdominal pain. Continue Protonix. Follow-up with Dr. Head in 1 to 2 weeks. Disposition Disposition: Home, Self Care
[2023-04-08 21:24] LABS: Red Blood Cells-Urine 0-5 SEEN /hpf (0-5); White Blood Cells 0-5 SEEN /hpf (0-5)
[2023-04-08 21:25] LABS: Bacteria RARE /hpf (None Seen); Squamous Epithelial Cells - UA 0-5 SEEN /hpf (5-10)
[2023-04-08 23:08] VITALS: BP 111/65; PULSE 71; PULSE 72; RESP 16; O2SAT 99
== END 2023-04-08 23:09 | disposition home or self-care (01) ==
PROVIDERS: Emergency Provider Emergency Medicine; PCP Family Medicine; Visit Provider Emergency Medicine
DX: R10.11 Right upper quadrant pain (principal); R10.13 Epigastric pain; K21.9 Gastro-esophageal reflux disease without esophagitis
CPT/HCPCS: 74177; 80048; 80076; 81001; 83690; 84703; 85025; 93005; 96361; 96374; 99283; J7030; Q9967; J2405

== ENCOUNTER → 2024-03-19 | Outpatient (CLI) | payer SELFPAY ==
--- NOTE | 2024-03-19 07:00 | CT_ITS ---
STUDY: CT CHEST WITHOUT CONTRAST REASON FOR EXAM: Female, 43 years old. Encounter for screening for cardiovascular disorders RADIATION DOSAGE (If Supplied By Facility): CTDIvol = ( 12.19 ) mGy, DLP = ( 292.55 ) mGycm TECHNIQUE: Transaxial imaging was performed without the administration of intravenous contrast material. Cardiac over read examination. Individualized dose optimization techniques were used for this CT. COMPARISON: No relevant priors. FINDINGS: CHEST The lungs are normal. There is no demonstrated pleural abnormality. No significant coronary artery calcification is seen. Calcified right azygous lymph node. Normal hilar regions. Normal unenhanced pulmonary arteries. Normal aorta arch and descending thoracic aorta. Normal osseous structures. Calcified splenic granuloma. CT/Limited Chest CT Cardiac Only IMPRESSION: No significant coronary artery calcification is seen. Electronically Signed: Koko Alvarado MD at 15:29 EST ,
--- NOTE | 2024-03-19 09:59 | CA.SCORE ---
Calcium Scoring Date of Study:: 03/19/24 Indications Indications: Cardiovascular screening Coronary Calcium Scoring: High-resolution Computed Tomographic imaging of the chest was performed on [03/19/2024], with particular attention paid to the coronary arteries. Images from the examination were analyzed for the presence and extent of coronary artery calcification , using coronary calcium quantification software. The patient tolerated the procedure well and there were no complications. The results of the coronary calcification analysis are provided below. Findings Coronary Artery Left Main (LM): 0 Left Anterior Descending (LAD): 0 Left Circumflex (LCX): 0 Right Coronary Artery (RCA): 0 Total Agatston Score: 0 Percentile Rankin% Calcium Scoring Interpretation: Different methods to categorize the overall amount of coronary plaque. Overall amount CAC SIS Visual of coronary plaque P1 Mild -100 <2 1-2 vessels with mild amount of plaque P2 Moderate 101-300 3-4 1-2 vessels with moderate amount, 3 vessels with mild amount of plaque P3 Severe 301-999 5-7 3 vessels with moderate amount, 1 vessel with severe amount of plaque P4 Extensive >1000 >8 2-3 vessels with severe amount of plaque Conclusion: No atherosclerotic plaque noted.
== END | disposition home or self-care (01) ==
PROVIDERS: PCP Family Medicine; Referring Provider Registered Nurse; Visit Provider Registered Nurse
DX: Z13.6 Encounter for screening for cardiovascular disorders (principal)
CPT/HCPCS: 75571; 76380